=== PATIENT | female | born 1990 | race African-American/Black ===

== ENCOUNTER 2018-03-07 21:15 | Emergency (ER) | payer OTHER ==
[~2018-03-07] VITALS: Ht 160 cm; Wt 83.0 kg
[2018-03-07 21:24] VITALS: BP 118/73
--- NOTE | 2018-03-07 21:35 | Emergency Room Report ---
History of Present Illness General Chief Complaint: Upper Extremity Injury Source: Patient Present Illness HPI Patient is a 27-year-old female who presented after increased right upper extremity pain. Patient had recently the reportedly fallen down some stairs. Patient reports having fallen approximately 24 hours prior to arrival. Patient states she's having increased pain to the right wrist. She denies other locations of pain. She reports taking some ibuprofen with some improvement in the pain. She reports increased pain with movements. 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 Allergies: Coded Allergies: No Known Allergies (Unverified , 03/07/18) Patient History Past Medical History: see triage record Last Menstrual Period: 02/2018 Reviewed Nursing Documentation: PMH: Agreed; PSxH: Agreed Nursing Documentation-PMH Past Medical History: No Stated History Review of Systems All Other Systems: negative except mentioned in HPI Physical Exam Vital Signs Date Time Temp Pulse Resp B/P (MAP) Pulse Ox O2 Delivery O2 Flow Rate FiO2 03/07/18 21:18 98.2 85 16 118/73 98 98.2 General Appearance: well appearing, no apparent distress, alert, GCS 15 Head: normocephalic, atraumatic ENT: hearing grossly normal, normal voice Neck: full range of motion, supple Respiratory: no respiratory distress, speaking full sentences Cardiovascular #1: normal inspection Musculoskeletal: decreased range of mation, other - slight swelling to wrist Neurologic: alert, oriented x3, responsive, senior business analyst III-XII nml as tested, normal gait Psychiatric: mood/affect normal Skin: no rash Medical Decision Making Diagnostic Impression: Primary Impression: Right wrist sprain ER Course Patient presented for wrist pain. Differential diagnosis included fracture, dislocation, scapphoid fracture, sprain, ganglion cyst, septic joint , arthritis, abscess among others. Wrist Xray was ordered. X-ray of the right wrist 3 views read by radiology showed normal bony alignment without fracture. Patient was placed in a splint. She is advised to follow-up with her primary care physician for reexamination and treatment. Last Vital Signs Date Time Temp Pulse Resp B/P (MAP) Pulse Ox O2 Delivery O2 Flow Rate FiO2 03/07/18 21:24 98.2 85 16 118/73 98 98.2 Status: improved Disposition: HOME, SELF-CARE Condition: Stable Scripts Ibuprofen* (MOTRIN*) 600 Mg Tablet 600 MG ORAL Q8H PRN for For Pain, #30 TAB 0 Refills Prov: Sina Gonzalez MD 03/07/18 Sina Gonzalez MD Mar 07, 2018 21:35
[2018-03-07] MEDS ORDERED: IBUPROFEN600 MG ORAL (22:39)
[2018-03-07 22:44] VITALS: BP 121/68
--- NOTE | 2018-03-08 10:04 | Diagnostic Imaging Report ---
Clinical Indication:Wrist pain Technique: 3 views of the right wrist Comparison: None Findings: Bony alignment is normal. No acute fractures. No dislocations. The joint spaces are preserved. There is possibly a tiny cyst within the lunate Impression: Negative This agrees with the preliminary interpretation provided overnight by [facility].
== END 2018-03-07 22:49 | disposition home or self-care (01) ==
LOC: EMR 21:43
DX: S63.501A Unspecified sprain of right wrist, initial encounter (principal); M25.531 Pain in right wrist; W10.9XXA Fall (on) (from) unspecified stairs and steps, initial encounter; Y93.9 Activity, unspecified; Y92.9 Unspecified place or not applicable; Y99.9 Unspecified external cause status
CPT/HCPCS: 29125; 99283

== ENCOUNTER 2018-03-14 19:33 | Emergency (ER) | payer OTHER ==
[~2018-03-14] VITALS: Ht 160 cm; Wt 83.0 kg
[~2018-03-14 19:33] MED LIST: IBUPROFEN600 MG ORAL
--- NOTE | 2018-03-14 20:51 | Emergency Room Report ---
History of Present Illness General Chief Complaint: Vaginal Source: Patient Present Illness HPI 27-year-old female presents emergency department complaining of multiple white vaginal discharge with itching 2 days. Patient denies bleeding, , external genital lesions, rashes, swollen tender lymph nodes or recent unprotected intercourse. Denies dysuria hematuria or urinary frequency. Denies abdominal pain or tenderness. Denies low back pain. Pt. denies suspicion for venereal disease. Allergies: Coded Allergies: No Known Allergies (Unverified , 03/07/18) Patient History Past Medical History: see triage record Past Surgical History: none Pertinent Family History: none Last Menstrual Period: 02/21/18 Now: No Reviewed Nursing Documentation: PMH: Agreed; PSxH: Agreed Nursing Documentation-PMH Past Medical History: No Stated History Review of Systems All Other Systems: negative except mentioned in HPI Physical Exam Vital Signs Date Time Temp Pulse Resp B/P (MAP) Pulse Ox O2 Delivery O2 Flow Rate FiO2 03/14/18 19:40 98.1 100 20 118/67 98 Room Air 98.1 Sp02 EP Interpretation: reviewed, normal General Appearance: no apparent distress, alert, GCS 15, non-toxic Head: normocephalic, atraumatic Eyes: bilateral eye normal inspection, bilateral eye PERRL ENT: hearing grossly normal, normal voice Neck: full range of motion Respiratory: chest non-tender, lungs clear, normal breath sounds, speaking full sentences Cardiovascular #1: regular rate, rhythm Gastrointestinal: normal bowel sounds, non tender, soft Rectal: deferred Genitourinary: normal inspection, no CVA tenderness, cervix normal, other - negative CMT. milky white vaginal d/c Musculoskeletal: back normal, gait/station normal, normal range of motion, non- tender Neurologic: alert, oriented x3, responsive, motor strength/tone normal, sensory intact, speech normal, grossly normal Psychiatric: judgement/insight normal Skin: normal color, no rash, warm/dry, well hydrated Lymphatic: no adenopathy Medical Decision Making PA Attestation Dr. Granados is my supervising physician whom pt. management has been discussed with. Diagnostic Impression: Primary Impression: Bacterial vaginosis ER Course 27-year-old female presents emergency department complaining of multiple white vaginal discharge with itching 2 days. Patient denies bleeding, , external genital lesions, rashes, swollen tender lymph nodes or recent unprotected intercourse. Denies dysuria hematuria or urinary frequency. Denies abdominal pain or tenderness. Denies low back pain. Pt. denies suspicion for venereal disease. Ddx considered but are not limited to UTi , Pyelo, STI, Stone, Cystitis, vaginal laceration, vaginitis. Vital signs: are WNL, pt. is afebrile H& PE are most consistent with: Vaginitis ORDERS: - UA labs are attached negative for UTI - Wet Mount : few clue cells, some WBC's no trich , no yeast ED INTERVENTIONS: -d/w pt. results of labs. DISCHARGE: At this time pt. is stable for d/c to home. Will provide printed patient care instructions, and any necessary prescriptions. Care plan and follow up instructions have been discussed with the patient prior to discharge. discussed with the patient prior to discharge. Labs Test 03/14/18 21:00 Urine Color Pale yellow Urine Appearance Clear Urine pH 6 (4.5-8.0) Urine Specific [place] 1.010 (1.005-1.035) Urine Protein Negative (NEGATIVE) Urine Glucose (UA) Negative (NEGATIVE) Urine Ketones Negative (NEGATIVE) Urine Blood Negative (NEGATIVE) Urine Nitrite Negative (NEGATIVE) Urine Bilirubin Negative (NEGATIVE) Urine Urobilinogen Normal MG/DL (0.0-1.0) Urine Leukocyte Esterase 2+ (NEGATIVE) Urine RBC 0-2 /HPF (0 - 2) Urine WBC 2-4 /HPF (0 - 2) Urine Squamous Epithelial Cells Few /LPF (NONE/OCC) Urine Bacteria Few /HPF (NONE) Last Vital Signs Date Time Temp Pulse Resp B/P (MAP) Pulse Ox O2 Delivery O2 Flow Rate FiO2 03/14/18 19:40 98.1 100 20 118/67 98 Room Air 98.1 Disposition: HOME, SELF-CARE Condition: Stable Scripts Metronidazole* (FLAGYL*) 500 Mg Tablet 500 MG ORAL BID for 7 Days, #14 TAB 0 Refills Prov: Mago Sauer 03/14/18 Patient Instructions: Bacterial Vaginosis, [id number] Additional Instructions: Take medications as directed. ! Do not drink alcohol while taking Flagyl/Metronidazole as this will cause a skin reaction. Follow up with a Primary Care Provider in 3-5 days, even if your symptoms have resolved. --Please review list of primary care clinics, if you do not already have a primary care provider Return sooner to ED if new symptoms occur, or current symptoms become worse. - Please note that this Emergency Department Report was dictated using Vsnap[employer] operations processor technology software, occasionally this can lead to erroneous entry secondary to interpretation by the dictation equipment. Mago Sauer Mar 14, 2018 20:51
[2018-03-14 21:00] VITALS: BP 118/67
[2018-03-14] MEDS ORDERED: METRONIDAZOLE500 MG ORAL (21:05)
[2018-03-14 21:11] VITALS: BP 118/67
[2018-03-14 21:19] LABS: APPEARANCE,URINE CLEAR; BILIRUBIN, URINE NEGATIVE (NEGATIVE); COLOR,URINE PALE YELLOW; GLUCOSE, URINE (UA) NEGATIVE (NEGATIVE); KETONES,URINE NEGATIVE (NEGATIVE); LEUKOCYTE ESTERASE ,URINE 2+ (NEGATIVE); NITRITE,URINE NEGATIVE (NEGATIVE); PH,URINE 6 (4.5-8.0); PROTEIN,URINE NEGATIVE (NEGATIVE); UROBILINOGEN,URINE NORMAL MG/DL (0.0-1.0)
== END 2018-03-14 21:15 | disposition home or self-care (01) ==
LOC: EMR 20:52
DX: N76.0 Acute vaginitis (principal); B96.89 Other specified bacterial agents as the cause of diseases classified elsewhere
CPT/HCPCS: 81003; 87210; 99283

== ENCOUNTER 2018-05-30 17:17 | Emergency (ER) | payer OTHER ==
[~2018-05-30] VITALS: Ht 160 cm; Wt 82.1 kg
[~2018-05-30 17:17] MED LIST changes: +METRONIDAZOLE500 MG ORAL
[2018-05-30 17:21] VITALS: BP 101/68
[2018-05-30] MEDS ORDERED: NKM (17:25)
[2018-05-30] MEDS ORDERED: Fluconazole 100mg tab ORAL ONE (18:00)
[2018-05-30] MEDS ORDERED: Azithromycin 250mg tab ORAL ONE (18:00)
[2018-05-30] MEDS ORDERED: Lidocaine 1% MPF 10mg/ml 5ml INJ ONE (18:00)
--- NOTE | 2018-05-30 18:01 | Emergency Room Report ---
History of Present Illness General Chief Complaint: Vaginal Source: Patient Present Illness HPI 28-year-old female patient presents the ER complaining of suprapubic discomfort and vaginal discharge for the past 3 days. Patient reports white discharge, states it is itchy. Denies foul-smelling odor. Denies dysuria or hematuria. Denies fever, chest pain, shortness of breath, abdominal pain, flank pain, diarrhea, vomiting. Reports concern for STI, states one sexual partner. States would like to be treated for possible STI. Denies concern for , states is not taking control medication. Denies rashes or lesions. Allergies: Coded Allergies: No Known Allergies (Unverified , 03/07/18) Patient History Past Medical History: see triage record Last Menstrual Period: 05/19/2018 Reviewed Nursing Documentation: PMH: Agreed; PSxH: Agreed Nursing Documentation-PMH Past Medical History: No Stated History Review of Systems All Other Systems: negative except mentioned in HPI Physical Exam Vital Signs Date Time Temp Pulse Resp B/P (MAP) Pulse Ox O2 Delivery O2 Flow Rate FiO2 05/30/18 17:21 98.4 93 14 101/68 96 Room Air Sp02 EP Interpretation: reviewed, normal General Appearance: well appearing, no apparent distress, alert, GCS 15, non- toxic Head: normocephalic, atraumatic Eyes: bilateral eye normal inspection, bilateral eye PERRL ENT: hearing grossly normal, normal pharynx, no angioedema, normal voice, uvula midline, moist mucus membranes Neck: full range of motion Respiratory: lungs clear, normal breath sounds, no rhonchi, no respiratory distress, no accessory muscle use, no wheezing, speaking full sentences Cardiovascular #1: regular rate, rhythm, no edema Gastrointestinal: non tender, soft, no mass, non-distended, no guarding, no rebound Genitourinary: no CVA tenderness, deferred Musculoskeletal: back normal, digits/nails normal, gait/station normal, normal range of motion, non-tender Neurologic: alert, oriented x3, responsive, motor strength/tone normal, sensory intact Psychiatric: mood/affect normal Medical Decision Making PA Attestation Dr. Ortiz is my supervising Physician whom patient management has been discussed with. Diagnostic Impression: Primary Impression: Yeast infection Additional Impressions: Urinary tract infection Encounter for assessment of sexually transmitted disease exposure ER Course Pt presents to ED c/o urinary symptoms. DDX considered but are not limited to cystitis, pyelonephritis, STI, vaginitis, , gonorrhea/chlamydia, bacterial vaginosis, yeast infection, PID. No abdominal tenderness to palpation, negative nut blanker operator, negative Aguiar, negative Rovsing, low suspicion for cholecystitis or appendicitis, does not require imaging or labs at this time. VITAL SIGNS are WNL, patient is afebrile. Ordered UA. ER COURSE Clinical exam consistent with yeast infection, will provide patient with fluconazole in the ER. UA results show 5-10 WBCs with moderate bacteria, few epithelial cells indicate likely UTI, will treat with antibiotics. Urine negative Discussed results with patient. Provided patient with Rocephin and Azithromycin in the ER. Informed patient medications will cover for gonorrhea and chlamydia, needs further follow-up evaluation and possible treatment of other sexual transmitted infections. Advised to use safe sex practices including but not limited to use of condoms. Avoid sexual activity for the next 2 weeks. Instructed patient to follow up with STI clinic and/or PCP for STI evaluation and further treatment as necessary. Instructed patient to inform partners of needs for evaluation and treatment of possible infections. Patient is resting comfortably in chair, nontoxic appearing, in no acute distress. Patient states they feel better and is ready to go home. DISCHARGE Patient is stable for discharge. Patient resting comfortably, in no acute distress, nontoxic appearing, talking without difficulty. Will provide with patient care instructions and any necessary prescriptions. Patient understands and agrees to treatment plan. Patient encouraged to drink plenty of fluids. Patient to take medication as instructed. Care plan and follow-up instructions provided. Patient questions asked and answered. Reports understanding and agreement to treatment plan. Patient instructed to follow-up with primary care provider in 3 - 5 days. ER precautions given. Patient instructed to return to ER immediately for any new or worsening of symptoms. Including but not limited to fever, abdominal pain , intractable vomiting. - Please note that this Emergency Department Report was dictated using SensiGenlead systems developer technology software, occasionally this can lead to erroneous entry secondary to interpretation by the dictation equipment. Labs Test 05/30/18 17:30 Urine Color Pale yellow Urine Appearance Clear Urine pH 7 (4.5-8.0) Urine Specific [place] 1.010 (1.005-1.035) Urine Protein Negative (NEGATIVE) Urine Glucose (UA) Negative (NEGATIVE) Urine Ketones Negative (NEGATIVE) Urine Blood Negative (NEGATIVE) Urine Nitrite Negative (NEGATIVE) Urine Bilirubin Negative (NEGATIVE) Urine Urobilinogen Normal MG/DL (0.0-1.0) Urine Leukocyte Esterase 3+ (NEGATIVE) Urine RBC 0 /HPF (0 - 2) Urine WBC 5-10 /HPF (0 - 2) Urine Squamous Epithelial Cells Few /LPF (NONE/OCC) Urine Bacteria Moderate /HPF (NONE) Urine HCG, Qualitative Negative (NEGATIVE) Last Vital Signs Date Time Temp Pulse Resp B/P (MAP) Pulse Ox O2 Delivery O2 Flow Rate FiO2 05/30/18 17:21 98.4 92 14 101/68 96 Room Air Disposition: HOME, SELF-CARE Condition: Stable Scripts Cephalexin* (KEFLEX*) 500 Mg Capsule 500 MG ORAL EVERY 12 HOURS, #14 CAP 0 Refills Prov: Jerrod Crystal 05/30/18 Patient Instructions: Sexually Transmitted Disease, [id number], Urinary Tract Infection, [id number], Vaginal Yeast Infection, Adult Additional Instructions: Followup with primary care provider and followup with STI clinic for further evaluation and treatment. Alert sexual partners for need for evaluation and treatment. Wear condoms during sex. Avoid sexual activity for 2 weeks. Drink plenty of fluids. Patient questions asked and answered. ER precautions given, patient instructed to return to ER immediately for any new or worsening of symptoms. Jerrod Crystal May 30, 2018 18:01
[2018-05-30 18:08] LABS: APPEARANCE,URINE CLEAR; BILIRUBIN, URINE NEGATIVE (NEGATIVE); COLOR,URINE PALE YELLOW; GLUCOSE, URINE (UA) NEGATIVE (NEGATIVE); KETONES,URINE NEGATIVE (NEGATIVE); LEUKOCYTE ESTERASE ,URINE 3+ (NEGATIVE); NITRITE,URINE NEGATIVE (NEGATIVE); PH,URINE 7 (4.5-8.0); PROTEIN,URINE NEGATIVE (NEGATIVE); UROBILINOGEN,URINE NORMAL MG/DL (0.0-1.0)
[2018-05-30] MEDS ORDERED: CEPHALEXIN500 MG ORAL (18:23)
[2018-05-30 18:27] VITALS: BP 101/68
== END 2018-05-30 18:29 | disposition home or self-care (01) ==
LOC: EMR 18:02
DX: B37.9 Candidiasis, unspecified (principal); N39.0 Urinary tract infection, site not specified; Z20.2 Contact with and (suspected) exposure to infections with a predominantly sexual mode of transmission
CPT/HCPCS: 81003; 81025; 87086; 96372; 96374; 99284; J0696; Q0144

== ENCOUNTER 2018-07-08 23:54 | Emergency (ER) | payer OTHER ==
[~2018-07-08] VITALS: Ht 160 cm; Wt 85.3 kg
[~2018-07-08 23:54] MED LIST changes: +CEPHALEXIN500 MG ORAL; +NKM
[2018-07-09 00:20] VITALS: BP 109/74
--- NOTE | 2018-07-09 00:20 | NUR ---
ED Nurse Note: Pt c/o UTI syndrome since 4 days ago, and some discharge from vagina. pt denies any pain during urination. pt admits to frequent urination. pt denies . urine speciment/ color is within normal limits (yellow).
--- NOTE | 2018-07-09 00:35 | Emergency Room Report ---
History of Present Illness General Chief Complaint: Female Urogenital Problems Source: Patient Present Illness [facility] This is a 27-year-old female with no past mental history. She presents with chief complaint of dysuria and frequency. Also with vaginal discharge. Onset for last 4 days. No nausea no vomiting but no back pain. She is sexually active with 2 partners. No protection. No history of STDs. Allergies: Coded Allergies: No Known Allergies (Unverified , 03/07/18) Patient History Past Medical History: see triage record, old chart reviewed Past Surgical History: none Pertinent Family History: none Social History: Denies: smoking Last Menstrual Period: Jun 16 2018 Now: No Immunizations: other Reviewed Nursing Documentation: PMH: Agreed; PSxH: Agreed Nursing Documentation-PMH Past Medical History: No Stated History Review of Systems Eye: Denies: eye pain, blurred vision ENT: Denies: ear pain, nose congestion, throat swelling Respiratory: Denies: cough, shortness of breath Cardiovascular: Denies: chest pain, palpitations Gastrointestinal: Denies: abdominal pain, diarrhea, nausea, vomiting Genitourinary: Reports: discharge, dysuria, frequency Musculoskeletal: Denies: back pain, joint pain Skin: Denies: rash Neurological: Denies: headache, numbness Endocrine: Denies: increased thirst, increased urine Hematologic/Lymphatic: Denies: easy bruising All Other Systems: negative except mentioned in HPI Physical Exam Vital Signs Date Time Temp Pulse Resp B/P (MAP) Pulse Ox O2 Delivery O2 Flow Rate FiO2 07/09/18 00:17 98.2 93 20 109/74 98 Room Air vitals normal Sp02 EP Interpretation: reviewed, normal General Appearance: well appearing, no apparent distress, alert Head: normocephalic, atraumatic Eyes: bilateral eye PERRL, bilateral eye EOMI ENT: hearing grossly normal, normal pharynx Neck: full range of motion, supple, no meningismus Respiratory: chest non-tender, lungs clear, normal breath sounds Cardiovascular #1: regular rate, rhythm, no murmur Gastrointestinal: normal bowel sounds, non tender, no mass, no organomegaly, no bruit, non-distended Genitourinary: other - Exam done with female nurse as clinical care coordinator. External exam normal. Internal exam show yellowish/whitish discharge. No cervical motion tenderness. No adnexal tenderness. Musculoskeletal: back normal, gait/station normal, normal range of motion Psychiatric: mood/affect normal Skin: warm/dry Medical Decision Making Diagnostic Impression: Primary Impression: Candidal vaginitis ER Course Patient presents with discharge consistent with a yeast infection. No evidence of cervicitis or torsion. No evidence of tubo-ovarian abscess. We'll discharge home. Last Vital Signs Date Time Temp Pulse Resp B/P (MAP) Pulse Ox O2 Delivery O2 Flow Rate FiO2 07/09/18 00:20 98.2 69 20 109/74 98 Room Air Status: improved Disposition: HOME, SELF-CARE Condition: Stable Scripts Fluconazole (FLUCONAZOLE) 100 Mg Tablet 100 MG ORAL DAILY, #7 TAB 0 Refills Prov: Robbin Chanel MD 07/09/18 Patient Instructions: Vaginal Yeast Infection, Adult Additional Instructions: Follow-up with your doctor in 7 days. Return if symptom worsen. Robbin Chanel MD Jul 09, 2018 00:35
[2018-07-09 00:57] LABS: APPEARANCE,URINE CLEAR; BILIRUBIN, URINE NEGATIVE (NEGATIVE); COLOR,URINE PALE YELLOW; GLUCOSE, URINE (UA) NEGATIVE (NEGATIVE); KETONES,URINE NEGATIVE (NEGATIVE); LEUKOCYTE ESTERASE ,URINE 1+ (NEGATIVE); NITRITE,URINE NEGATIVE (NEGATIVE); PH,URINE 6 (4.5-8.0); PROTEIN,URINE NEGATIVE (NEGATIVE); UROBILINOGEN,URINE NORMAL MG/DL (0.0-1.0)
[2018-07-09] MEDS ORDERED: FLUCONAZOLE100 MG ORAL (01:19)
[2018-07-09 01:21] VITALS: BP 111/75
[2018-07-09 01:22] VITALS: BP 111/75
--- NOTE | 2018-07-09 01:23 | NUR ---
ED Nurse Note: Pt is DC per ERMD order. pt is alert and oriented times 4. pt vital signs, status and condition are within normal limits. pt has left with all belongings including DC notes and prescription. pt is able to understand DC notes and prescriptions. pt is instructed to follow up with primary provider as soon as possible. pt is stable for discharge. pt is instructed to return as soon as possible to ER if any reoccurance of symptoms. all pt status, vital signs, and condition is reported to ERMD prior to DC. pt is able to ambulate with steady gait. PT ID is DC.
== END 2018-07-09 01:27 | disposition home or self-care (01) ==
LOC: EMR 07-09 00:33
DX: B37.3 Candidiasis of vulva and vagina (principal)
CPT/HCPCS: 81003; 81025; 87210; 99283

== ENCOUNTER 2018-08-08 14:58 | Emergency (ER) | payer OTHER ==
[~2018-08-08] VITALS: Ht 160 cm; Wt 85.3 kg
[~2018-08-08 14:58] MED LIST changes: +FLUCONAZOLE100 MG ORAL
--- NOTE | 2018-08-08 15:03 | NUR ---
ED Nurse Note: walked in to ED due to vaginal discharge with fish smell, pt also c/o itchness for 1 week. Pt is A + O x4. AMbulatory.
[2018-08-08] MEDS ORDERED: NKM (15:05)
[2018-08-08] MEDS ORDERED: Fluconazole 100mg tab ORAL ONE (16:00)
[2018-08-08] MEDS ORDERED: FLUCONAZOLE100 MG ORAL (16:07)
[2018-08-08] MEDS ORDERED: METRONIDAZOLE500 MG ORAL (16:07)
--- NOTE | 2018-08-08 16:07 | Emergency Room Report ---
History of Present Illness General Chief Complaint: Female Urogenital Problems Source: Patient Present Illness HPI *`* Allergies: Coded Allergies: No Known Allergies (Unverified , 03/07/18) Patient History Past Medical History: see triage record Past Surgical History: none Last Menstrual Period: 07/26/18 Reviewed Nursing Documentation: PMH: Agreed; PSxH: Agreed Nursing Documentation-PMH Past Medical History: No Stated History Review of Systems All Other Systems: negative except mentioned in HPI Physical Exam Vital Signs Date Time Temp Pulse Resp B/P (MAP) Pulse Ox O2 Delivery O2 Flow Rate FiO2 08/08/18 15:03 98.1 86 18 126/75 98 Room Air Medical Decision Making Diagnostic Impression: Primary Impression: Vaginitis Qualified Codes: N76.0 - Acute vaginitis ER Course Pt. presents to the ED c/o vaginal irritation/ discomfort, [ ] x [ ] day(s). Ddx considered but are not limited to UTi , Pyelo, STI, Stone, Cystitis, vaginal laceration, vaginitis. Vital signs: are WNL, pt. is afebrile H& PE are most consistent with: Vaginitis ORDERS: - UA labs are attached - Wet Mount : ED INTERVENTIONS: -Diflucan PO DISCHARGE: At this time pt. is stable for d/c to home. Will provide printed patient care instructions, and any necessary prescriptions. Care plan and follow up instructions have been discussed with the patient prior to discharge. discussed with the patient prior to discharge. Last Vital Signs Date Time Temp Pulse Resp B/P (MAP) Pulse Ox O2 Delivery O2 Flow Rate FiO2 08/08/18 15:03 98.1 86 18 126/75 98 Room Air Status: improved Disposition: HOME, SELF-CARE Condition: Unknown Patient Instructions: Vaginitis Additional Instructions: Take medications as directed. Follow up with a Primary Care Provider in 3-5 days, even if your symptoms have resolved. --Please review list of primary care clinics, if you do not already have a primary care provider Return sooner to ED if new symptoms occur, or current symptoms become worse. - Please note that this Emergency Department Report was dictated using Audionamixreflow operator technology software, occasionally this can lead to erroneous entry secondary to interpretation by the dictation equipment. Mago Sauer Aug 08, 2018 16:07
[2018-08-08 16:11] LABS: APPEARANCE,URINE CLEAR; BILIRUBIN, URINE NEGATIVE (NEGATIVE); COLOR,URINE PALE YELLOW; GLUCOSE, URINE (UA) NEGATIVE (NEGATIVE); KETONES,URINE NEGATIVE (NEGATIVE); LEUKOCYTE ESTERASE ,URINE 3+ (NEGATIVE); NITRITE,URINE NEGATIVE (NEGATIVE); PH,URINE 6.5 (4.5-8.0); PROTEIN,URINE NEGATIVE (NEGATIVE); UROBILINOGEN,URINE NORMAL MG/DL (0.0-1.0)
[2018-08-08 16:23] VITALS: BP 120/77
--- NOTE | 2018-08-08 16:23 | NUR ---
ER DISCHARGE NOTE: Patient is cleared to be discharged per ERMD, pt is aox4, on room air, with stable vital signs. pt was given dc and prescription instructions, pt was able to verbalize understanding, pt id band removed without complications. pt is able to ambulate with steady gait. pt took all belongings.
== END 2018-08-08 16:25 | disposition home or self-care (01) ==
LOC: EMR 15:35
DX: N76.0 Acute vaginitis (principal)
CPT/HCPCS: 81003; 99283

== ENCOUNTER 2018-09-14 22:39 | Emergency (ER) | payer OTHER ==
[~2018-09-14] VITALS: Ht 160 cm; Wt 89.4 kg
[2018-09-14 23:00] VITALS: BP 104/72
--- NOTE | 2018-09-14 23:00 | NUR ---
ER Nurse Note: Pt came from home c/o white vaginal discharge since 09/13. Pt stated this has happened before; denies pain. No difficutly voiding, no burning, n/v; pt denies hx of STD. ERMD at pt side; will continue to montior.
--- NOTE | 2018-09-14 23:11 | Emergency Room Report ---
History of Present Illness General Chief Complaint: Vaginal Source: Patient Present Illness HPI Is a 27-year-old female with no past medical history. She does get frequent vaginitis, usually after her menstrual. She presents with vaginal discharge. Whitish in nature. She is sexually active with one partner and uses protection all the time. No douching. No fever chills but no nausea no vomiting. No history of STD. No urinary complaint. No dysuria or frequency or urgency. Allergies: Coded Allergies: No Known Allergies (Unverified , 09/14/18) Patient History Past Medical History: see triage record, old chart reviewed Past Surgical History: none Pertinent Family History: none Social History: Denies: smoking Last Menstrual Period: 09-05-2018 Now: No Immunizations: other Reviewed Nursing Documentation: PMH: Agreed; PSxH: Agreed Nursing Documentation-PMH Past Medical History: No Stated History Review of Systems Eye: Denies: eye pain, blurred vision ENT: Denies: ear pain, nose congestion, throat swelling Respiratory: Denies: cough, shortness of breath Cardiovascular: Denies: chest pain, palpitations Gastrointestinal: Denies: abdominal pain, diarrhea, nausea, vomiting Genitourinary: Reports: vag bleed/dc Musculoskeletal: Denies: back pain, joint pain Skin: Denies: rash Neurological: Denies: headache, numbness Endocrine: Denies: increased thirst, increased urine Hematologic/Lymphatic: Denies: easy bruising All Other Systems: negative except mentioned in HPI Physical Exam Vital Signs Date Time Temp Pulse Resp B/P (MAP) Pulse Ox O2 Delivery O2 Flow Rate FiO2 09/14/18 22:46 98.2 90 16 104/72 98 Room Air vitals normal Sp02 EP Interpretation: reviewed, normal General Appearance: well appearing, no apparent distress, alert Head: normocephalic, atraumatic Eyes: bilateral eye PERRL, bilateral eye EOMI ENT: hearing grossly normal, normal pharynx Neck: full range of motion, supple, no meningismus Respiratory: chest non-tender, lungs clear, normal breath sounds Cardiovascular #1: regular rate, rhythm, no murmur Gastrointestinal: normal bowel sounds, non tender, no mass, no organomegaly, no bruit, non-distended Genitourinary: other - Exam done with female nurse as toddler guide. external exam normal. internal exam with whitish dc. no CMT Musculoskeletal: back normal, gait/station normal, normal range of motion Psychiatric: mood/affect normal Skin: warm/dry Medical Decision Making Diagnostic Impression: Primary Impression: UTI (urinary tract infection) Qualified Codes: N30.00 - Acute cystitis without hematuria Additional Impression: Bacterial vaginosis ER Course Patient presents with vaginal discharge. It may be physiological. There is some clue cells someone going put her on some antibiotics. Possible urinary tract infection. Notice of ectopic. No evidence of PID. We'll discharge home. Last Vital Signs Date Time Temp Pulse Resp B/P (MAP) Pulse Ox O2 Delivery O2 Flow Rate FiO2 09/14/18 22:46 98.2 90 16 104/72 98 Room Air Status: improved Disposition: HOME, SELF-CARE Condition: Stable Scripts Nitrofurantoin Monohyd/M-Cryst (Nitrofurantoin [place]-Mcr 100 mg) 100 Mg Capsule 100 MG ORAL Q12H, #14 CAP Prov: Robbin Chanel MD 09/15/18 Metronidazole* (FLAGYL*) 500 Mg Tablet 500 MG ORAL BID, #14 TAB Prov: Robbin Chanel MD 09/15/18 Additional Instructions: Follow-up with your doctor in 7 days. Return if symptom worsen. Robbin Chanel MD Sep 14, 2018 23:11
[2018-09-14 23:30] LABS: APPEARANCE,URINE CLEAR; BILIRUBIN, URINE NEGATIVE (NEGATIVE); COLOR,URINE PALE YELLOW; GLUCOSE, URINE (UA) NEGATIVE (NEGATIVE); KETONES,URINE NEGATIVE (NEGATIVE); LEUKOCYTE ESTERASE ,URINE 2+ (NEGATIVE); NITRITE,URINE NEGATIVE (NEGATIVE); PH,URINE 5 (4.5-8.0); PROTEIN,URINE NEGATIVE (NEGATIVE); UROBILINOGEN,URINE NORMAL MG/DL (0.0-1.0)
--- NOTE | 2018-09-14 23:39 | NUR ---
ER Nurse Note: All orders completed per ERMD orders; awaiting results. Pt resting comfortably, no signs of distress. All safety measures met; will continue to montior.
[2018-09-15] MEDS ORDERED: METRONIDAZOLE500 MG ORAL (00:01)
[2018-09-15] MEDS ORDERED: MACROBID100 MG ORAL (00:01)
[2018-09-15 00:15] VITALS: BP 104/72
--- NOTE | 2018-09-15 00:15 | NUR ---
ED Nurse Note: Pt seen, treated, medically cleared for discharge by ERMD. Discharge instructions and prescriptions given with repeat verbalziaion by pt. Instructed pt to follow up with primary care provider within one week. Pt a&ox4, VSS, no signs of distress. ID band removed. Pt left with steady gait via own transporation.
== END 2018-09-15 00:15 | disposition home or self-care (01) ==
LOC: EMR 23:01
DX: N39.0 Urinary tract infection, site not specified (principal); N76.0 Acute vaginitis; B96.89 Other specified bacterial agents as the cause of diseases classified elsewhere
CPT/HCPCS: 81003; 81025; 87086; 87210; 99283

== ENCOUNTER 2019-01-01 13:01 | Emergency (ER) | payer OTHER ==
[~2019-01-01] VITALS: Ht 157.5 cm; Wt 81.6 kg
[~2019-01-01 13:01] MED LIST changes: +MACROBID100 MG ORAL
[2019-01-01] MEDS ORDERED: ALBUTEROL SULF8.5 GM INH (13:08)
[2019-01-01 13:18] VITALS: BP 112/74
--- NOTE | 2019-01-01 13:18 | NUR ---
ED Nurse Note: Pt walked in to ER c/o abdominal pain and N/V for last 2 weeks. Pt aao x4 and ambulatory. skin clean and intact. calm and cooperative. pt denied possibility of due to pt just started period. pt in gown.
[2019-01-01 13:31] LABS: APPEARANCE,URINE CLEAR; BILIRUBIN, URINE NEGATIVE (NEGATIVE); COLOR,URINE PALE YELLOW; GLUCOSE, URINE (UA) NEGATIVE (NEGATIVE); KETONES,URINE NEGATIVE (NEGATIVE); LEUKOCYTE ESTERASE ,URINE 2+ (NEGATIVE); NITRITE,URINE NEGATIVE (NEGATIVE); PH,URINE 8 (4.5-8.0); PROTEIN,URINE NEGATIVE (NEGATIVE); UROBILINOGEN,URINE NORMAL MG/DL (0.0-1.0)
[2019-01-01 13:47] LABS: BASOPHILS % (AUTO) 2.1 % (0.0-2.0); EOSINOPHILS % (AUTO) 6.6 % (0.0-3.0); HEMATOCRIT 41.8 % (37.0-47.0); HEMOGLOBIN 13.7 G/DL (12.0-16.0); LYMPHOCYTES % (AUTO) 28.8 % (20.0-45.0); MEAN CORPUSCULAR VOLUME 87 FL (80-99); MONOCYTES % (AUTO) 10.3 % (1.0-10.0); NEUTROPHILS % (AUTO) 52.2 % (45.0-75.0); PLATELET COUNT 371 K/UL (150-450); RED BLOOD COUNT 4.79 M/UL (4.20-5.40); RED CELL DISTRIBUTION WIDTH 12.4 % (11.6-14.8); WHITE BLOOD COUNT 5.3 K/UL (4.8-10.8)
[2019-01-01 14:02] LABS: ANION GAP 8 mmol/L (5-15); BLOOD UREA NITROGEN 9 mg/dL (7-18); CALCIUM 9.4 MG/DL (8.5-10.1); CARBON DIOXIDE 30 MMOL/L (21-32); CHLORIDE 104 MMOL/L (98-107); CREATININE 0.9 MG/DL (0.55-1.30); POTASSIUM 4.1 MMOL/L (3.5-5.1); SODIUM 142 MMOL/L (136-145)
[2019-01-01 14:07] LABS: ALANINE AMINOTRANSFERASE 36 U/L (12-78); ALBUMIN 4.6 G/DL (3.4-5.0); ALBUMIN/GLOBULIN RATIO 1.2 (1.0-2.7); ALKALINE PHOSPHATASE 67 U/L (46-116); ASPARTATE AMINO TRANSFERASE 27 U/L (15-37); BILIRUBIN,TOTAL 0.8 MG/DL (0.2-1.0)
--- NOTE | 2019-01-01 14:37 | Emergency Room Report ---
History of Present Illness General Chief Complaint: Abdominal Pain Source: Patient Present Illness HPI 27-year-old female with no significant past medical history here complaining of 2 weeks of epigastric abdominal pain, multiple bouts of nonbloody vomiting, nausea, and few bouts of nonbloody diarrhea. Patient does not recall whether her symptoms started after eating a special food. Denies recent travel. Denies fever and chills, shortness of breath, chest pain, palpitation, urinary symptoms. 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 Does report that she is a lot of greasy food and acidic and spicy food. Denies smoking, drinking alcohol. Has not been to her primary care provider regarding this issue. Patient is rating her pain 3 out of 10, intermittent, worsening when eating and immediate vomiting. Denies acid reflux. Allergies: Coded Allergies: No Known Allergies (Unverified , 09/14/18) Patient History Past Medical History: see triage record Past Surgical History: unable to obtain Pertinent Family History: none Last Menstrual Period: 12/24/18 Now: No Immunizations: UTD Reviewed Nursing Documentation: PMH: Agreed; PSxH: Agreed Nursing Documentation-PMH Past Medical History: No History, Except For Hx Asthma: Yes Review of Systems All Other Systems: negative except mentioned in HPI Physical Exam Vital Signs Date Time Temp Pulse Resp B/P (MAP) Pulse Ox O2 Delivery O2 Flow Rate FiO2 01/01/19 13:04 97.9 96 17 112/74 (87) 98 Room Air Sp02 EP Interpretation: reviewed, normal General Appearance: normal inspection, well appearing, no apparent distress, alert, GCS 15, non-toxic Head: normocephalic, atraumatic Eyes: bilateral eye normal inspection, bilateral eye PERRL ENT: normal ENT inspection, hearing grossly normal, normal pharynx, no angioedema Neck: normal inspection, full range of motion, supple Respiratory: normal inspection, chest non-tender, lungs clear, no rhonchi, no retraction Cardiovascular #1: normal inspection, normal peripheral pulses, regular rate, rhythm, no murmur, normal capillary refill Gastrointestinal: normal bowel sounds, non tender, soft, no mass, no organomegaly, no peritonitis, no bruit, non-distended, no guarding, no hernia, no pulsatile mass, no rebound Genitourinary: no CVA tenderness Musculoskeletal: normal inspection, back normal Neurologic: normal inspection, alert, oriented x3, responsive Psychiatric: normal inspection, judgement/insight normal Skin: palpation normal, normal color Lymphatic: normal inspection, no adenopathy Medical Decision Making PA Attestation All my diagnosis and treatment plans were reviewed ad discussed with my supervising physician Dr. Granados Diagnostic Impression: Primary Impression: Gastroenteritis ER Course Follow-up with your primary care provider for stool culture, ova and parasite and to be tested for H. pylori as you have been having intermittent nonbloody diarrhea and nausea vomiting for 2 weeks that can be secondary to bacterial infection increase her oral hydration keep a BRAT diet consisted of banana, rice , applesauce, piece of toast avoid spicy acidic food avoid red meat and dairy products 27-year-old female with no significant past medical history here complaining of 2 weeks of epigastric abdominal pain, multiple bouts of nonbloody vomiting, nausea, and few bouts of nonbloody diarrhea. Patient does not recall whether her symptoms started after eating a special food. Denies recent travel. Denies fever and chills, shortness of breath, chest pain, palpitation, urinary symptoms. 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 Does report that she is a lot of greasy food and acidic and spicy food. Denies smoking, drinking alcohol. Has not been to her primary care provider regarding this issue. Patient is rating her pain 3 out of 10, intermittent, worsening when eating and immediate vomiting. Denies acid reflux. Ddx considered but are not limited to: appendicitis, gastroenteritis, UTI, pyelonephritis, Vital signs: are WNL, pt. is afebrile H&PE are most consistent with: Gastroenteritis ORDERS: cbc, cmp,, UA, urine test, EKG ED INTERVENTIONS: NS bolus, zofran, pepcid DISCHARGE: At this time pt. is stable for d/c to home. Will provide printed patient care instructions, and any necessary prescriptions. Care plan and follow up instructions have been discussed with the patient prior to discharge. Follow-up with a primary care provider for stool culture, ova and person H. pylori testing. Keep BRAT diet Last Vital Signs Date Time Temp Pulse Resp B/P (MAP) Pulse Ox O2 Delivery O2 Flow Rate FiO2 01/01/19 13:18 97.9 96 17 112/74 98 Room Air Disposition: HOME, SELF-CARE Condition: Stable Scripts Ondansetron (Zofran) 4 Mg Tablet 4 MG ORAL Q6H PRN for Nausea & Vomiting, #12 TAB Prov: Elyssa Avalos 01/01/19 Referrals: [facility],REFERRING (PCP) Patient Instructions: Viral Gastroenteritis, Adult Additional Instructions: Follow-up with your primary care provider for stool culture, ova and parasite and to be tested for H. pylori as you have been having intermittent nonbloody diarrhea and nausea vomiting for 2 weeks that can be secondary to bacterial infection increase her oral hydration keep a BRAT diet consisted of banana, rice , applesauce, piece of toast avoid spicy acidic food avoid red meat and dairy products Elyssa Avalos Jan 01, 2019 14:37
[2019-01-01] MEDS ORDERED: ZOFRAN4 M1 ORAL (14:38)
[2019-01-01 14:46] VITALS: BP 128/72
--- NOTE | 2019-01-01 14:48 | NUR ---
ER DISCHARGE NOTE: Patient is cleared to be discharged per ERMD, pt is aox4, on room air, with stable vital signs. pt was given dc and prescription instructions, pt was able to verbalize understanding, pt id band and iv site removed without complications. pt is able to ambulate with steady gait. pt took all belongings.
--- NOTE | 2019-01-02 17:07 | Cardiology Report ---
APPROVED REPORT EKG Measurement Heart [id number] Normal sinus rhythm Normal ECG
== END 2019-01-01 14:49 | disposition home or self-care (01) ==
LOC: EMR 13:12
DX: K52.9 Noninfective gastroenteritis and colitis, unspecified (principal); R11.2 Nausea with vomiting, unspecified
CPT/HCPCS: 36415; 80053; 81001; 81025; 83690; 85025; 93005; 96374; 96375; 99284; J2405; S0028

== ENCOUNTER 2019-02-15 17:08 | Emergency (ER) | payer OTHER ==
[~2019-02-15] VITALS: Ht 160 cm; Wt 81.6 kg
[~2019-02-15 17:08] MED LIST changes: +ALBUTEROL SULF8.5 GM INH; +ZOFRAN4 M1 ORAL
[2019-02-15 17:20] VITALS: BP 119/82
[2019-02-15] MEDS ORDERED: NKM (17:23)
--- NOTE | 2019-02-15 17:44 | NUR ---
ED Nurse Note: Patient presents to ER due to vaginal discharge, white, 'fishy smell' x 2-3 days; Reports no abdominal pain. Reports no N/V or fever or chills. Reports no urinary problem.
--- NOTE | 2019-02-15 17:49 | Emergency Room Report ---
History of Present Illness General Chief Complaint: Vaginal Source: Medical Record Present Illness HPI 27-year-old female with no significant past medical history here complaining of 2 days of white vaginal discharge with fishy odor. Patient also complains of urinary frequency however denies dysuria, hematuria, pelvic pain, nausea vomiting, fever and chills. Patient has not taken medication for symptom relief. Patient is sexually active does not use condoms. Last menstrual period was 2 weeks ago and regular. Patient agrees to be prophylactically treated for both chlamydia, gonorrhea as well as bacterial vaginosis, trichomoniasis, yeast infection. Denies chest pain, shortness of breath, palpitation, or other associated symptoms. Allergies: Coded Allergies: No Known Allergies (Unverified , 09/14/18) Patient History Past Medical History: see triage record Past Surgical History: unable to obtain Pertinent Family History: none Last Menstrual Period: 01/22/19 Now: No Immunizations: UTD Reviewed Nursing Documentation: PMH: Agreed; PSxH: Agreed Nursing Documentation-PMH Past Medical History: No History, Except For Hx Asthma: Yes Review of Systems All Other Systems: negative except mentioned in HPI Physical Exam Vital Signs Date Time Temp Pulse Resp B/P (MAP) Pulse Ox O2 Delivery O2 Flow Rate FiO2 02/15/19 17:20 98.4 18 119/82 99 Room Air 02/15/19 17:20 91 Sp02 EP Interpretation: reviewed, normal General Appearance: no apparent distress, alert, GCS 15, non-toxic Head: normocephalic, atraumatic Eyes: bilateral eye normal inspection, bilateral eye PERRL ENT: hearing grossly normal, normal pharynx, no angioedema, normal voice Neck: full range of motion, supple/symm/no masses Respiratory: chest non-tender, lungs clear, normal breath sounds, speaking full sentences Cardiovascular #1: regular rate, rhythm, no edema, no murmur Gastrointestinal: normal bowel sounds, non tender, soft, non-distended, no guarding, no rebound Rectal: deferred Genitourinary: normal inspection, no CVA tenderness Musculoskeletal: back normal, gait/station normal, normal range of motion, non- tender Neurologic: alert, oriented x3, responsive, motor strength/tone normal, sensory intact, speech normal Psychiatric: judgement/insight normal, memory normal, mood/affect normal, no suicidal/homicidal ideation Skin: no rash Lymphatic: no adenopathy Medical Decision Making PA Attestation All diagnoses and treatment plans were reviewed and discussed with my supervising physician Dr. Horton Diagnostic Impression: Primary Impression: Vaginitis Additional Impressions: Screening for STD (sexually transmitted disease) UTI (urinary tract infection) ER Course 27-year-old female with no significant past medical history here complaining of 2 days of white vaginal discharge with fishy odor. Patient also complains of urinary frequency however denies dysuria, hematuria, pelvic pain, nausea vomiting, fever and chills. Patient has not taken medication for symptom relief. Patient is sexually active does not use condoms. Last menstrual period was 2 weeks ago and regular. Patient agrees to be prophylactically treated for both chlamydia, gonorrhea as well as bacterial vaginosis, trichomoniasis, yeast infection. Denies chest pain, shortness of breath, palpitation, or other associated symptoms. Ddx considered but are not limited to: vaginitis, yeast infection, BV, chlamydia , Gohnorrea, syphylis, HIV, herpes 1 or 2 Vital signs: are WNL, pt. is afebrile H&PE are most consistent with : Vaginitis, screening for STD, UTI ORDERS: UA, , GC and chlamydia, urine test, doxycycline, Flagyl, Diflucan ED INTERVENTIONS: Rocephin 250 mg IM DISCHARGE: At this time pt. is stable for d/c to home. Will provide printed patient care instructions, and any necessary prescriptions. Care plan and follow up instructions have been discussed with the patient prior to discharge. Patient agrees to be prophylactically treated for chlamydia and gonorrhea, bacterial vaginosis, yeast infection patient knows that the chlamydia and gonorrhea testing are pending. Agrees to follow-up with her primary care provider take medication as directed Last Vital Signs Date Time Temp Pulse Resp B/P (MAP) Pulse Ox O2 Delivery O2 Flow Rate FiO2 02/15/19 17:20 98.4 91 18 119/82 (94) 99 Room Air Disposition: HOME, SELF-CARE Condition: Stable Scripts Doxycycline Hyclate (DOXYCYCLINE HYCLATE) 100 Mg Capsule 100 MG PO BID for 7 Days, #14 CAP Prov: Elyssa Avalos 02/15/19 Fluconazole (FLUCONAZOLE) 100 Mg Tablet 1.5 TAB ORAL ONCE for 1 Day, #2 TAB 0 Refills Prov: Elyssa Avalos 02/15/19 Metronidazole* (FLAGYL*) 500 Mg Tablet 500 MG ORAL BID for 7 Days, #14 TAB Prov: Elyssa Avalos 02/15/19 Patient Instructions: Urinary Tract Infection, Vaginitis, [id number] Additional Instructions: Take medication as directed follow-up with your primary care provider if worsening symptoms return to the emergency room Elyssa Avalos Feb 15, 2019 17:49
[2019-02-15] MEDS ORDERED: FLUCONAZOLE100 MG ORAL (17:51)
[2019-02-15] MEDS ORDERED: DOXYCYCLINE HY100 M2 PO (17:51)
[2019-02-15] MEDS ORDERED: METRONIDAZOLE500 MG ORAL (17:51)
[2019-02-15] MEDS ORDERED: Lidocaine 1% MPF 10mg/ml 5ml INJ ONE (18:00)
[2019-02-15 18:14] LABS: APPEARANCE,URINE SLIGHTLY CLOUDY; BILIRUBIN, URINE NEGATIVE (NEGATIVE); COLOR,URINE PALE YELLOW; GLUCOSE, URINE (UA) NEGATIVE (NEGATIVE); KETONES,URINE NEGATIVE (NEGATIVE); LEUKOCYTE ESTERASE ,URINE 3+ (NEGATIVE); NITRITE,URINE NEGATIVE (NEGATIVE); PH,URINE 6.5 (4.5-8.0); PROTEIN,URINE NEGATIVE (NEGATIVE); UROBILINOGEN,URINE NORMAL MG/DL (0.0-1.0)
[2019-02-15 18:36] VITALS: BP 119/82
== END 2019-02-15 18:36 | disposition home or self-care (01) ==
LOC: EMR 17:50
DX: N76.0 Acute vaginitis (principal); N39.0 Urinary tract infection, site not specified; J45.909 Unspecified asthma, uncomplicated
CPT/HCPCS: 81001; 81025; 87086; 87491; 87590; 96372; 99283; J0696

== ENCOUNTER 2019-04-23 23:37 | Emergency (ER) | payer OTHER ==
[~2019-04-23] VITALS: Ht 160 cm; Wt 81.6 kg
[~2019-04-23 23:37] MED LIST changes: +DOXYCYCLINE HY100 M2 PO
[2019-04-24] VITALS: BP 118/76
--- NOTE | 2019-04-24 | NUR ---
ED Nurse Note: Patient walked in to ER due vaginal discharge x3 days. As per patient, she has white discharges with foul smelling odor. Stated that she is sexually active. Denies and pain or any vaginal swelling. No stated medical history. No SOB. Afebrile. VSS.
--- NOTE | 2019-04-24 00:04 | Emergency Room Report ---
History of Present Illness General Chief Complaint: Female Urogenital Problems Source: Patient Present Illness HPI Is a 27-year-old female with no past medical history. She presents with chief complaint of vaginal discharge. Onset for the last 2 days. She said has a fishy odor to it. Similar symptom in the past. She is sexually active with no protection. No history of STD. No douching. Denies any other complaint. No urinary complaint. Allergies: Coded Allergies: No Known Allergies (Unverified , 09/14/18) Patient History Past Medical History: see triage record, old chart reviewed Past Surgical History: none Pertinent Family History: none Social History: Denies: smoking Last Menstrual Period: 04/13/19 Now: No Immunizations: other Reviewed Nursing Documentation: PMH: Agreed; PSxH: Agreed Nursing Documentation-PMH Hx Asthma: Yes Review of Systems Eye: Denies: eye pain, blurred vision ENT: Denies: ear pain, nose congestion, throat swelling Respiratory: Denies: cough, shortness of breath Cardiovascular: Denies: chest pain, palpitations Gastrointestinal: Denies: abdominal pain, diarrhea, nausea, vomiting Genitourinary: Reports: vag bleed/dc Musculoskeletal: Denies: back pain, joint pain Skin: Denies: rash Neurological: Denies: headache, numbness Endocrine: Denies: increased thirst, increased urine Hematologic/Lymphatic: Denies: easy bruising All Other Systems: negative except mentioned in HPI Physical Exam Vital Signs Date Time Temp Pulse Resp B/P (MAP) Pulse Ox O2 Delivery O2 Flow Rate FiO2 04/23/19 23:53 99.0 85 18 118/76 (90) 98 Room Air Vitals normal Sp02 EP Interpretation: reviewed, normal General Appearance: well appearing, no apparent distress, alert Head: normocephalic, atraumatic Eyes: bilateral eye PERRL, bilateral eye EOMI ENT: hearing grossly normal, normal pharynx Neck: full range of motion, supple, no meningismus Respiratory: chest non-tender, lungs clear, normal breath sounds Cardiovascular #1: regular rate, rhythm, no murmur Gastrointestinal: normal bowel sounds, non tender, no mass, no organomegaly, no bruit, non-distended Genitourinary: other - Pelvic exam done with female nurse as special police. External exam normal. Internal exam show copious amount of yellowish discharge. No cervical motion tenderness. No adnexal tenderness. Musculoskeletal: back normal, gait/station normal, normal range of motion Psychiatric: mood/affect normal Medical Decision Making Diagnostic Impression: Primary Impression: Acute cervicitis ER Course This patient presents with vaginal discharge. Wet prep not significant for trichomonas, bacterial vaginosis or yeast infection. She appears amount of greenish/yellowish discharge. This is concerning for gonorrheal cervicitis. Rocephin and azithromycin given here. Will recommend outpatient HIV testing, hepatitis, syphilis and other STD testing. Also recommend partner to be treated. Last Vital Signs Date Time Temp Pulse Resp B/P (MAP) Pulse Ox O2 Delivery O2 Flow Rate FiO2 04/24/19 00:00 99.0 80 18 118/76 98 Room Air Status: improved Disposition: HOME, SELF-CARE Condition: Stable Additional Instructions: Have your partner treated also. Recommend outpatient testing for HIV, hepatitis , syphilis and other STDs. Follow-up with your doctor in 7-day. Return if symptoms worsen. Robbin Chanel MD Apr 24, 2019 00:04
--- NOTE | 2019-04-24 00:20 | NUR ---
ED Nurse Note: Vaginal wet mount done at bedside.
[2019-04-24 00:47] LABS: APPEARANCE,URINE CLEAR; BILIRUBIN, URINE NEGATIVE (NEGATIVE); COLOR,URINE PALE YELLOW; GLUCOSE, URINE (UA) NEGATIVE (NEGATIVE); KETONES,URINE NEGATIVE (NEGATIVE); NITRITE,URINE NEGATIVE (NEGATIVE); PH,URINE 6 (4.5-8.0); PROTEIN,URINE NEGATIVE (NEGATIVE); UROBILINOGEN,URINE NORMAL MG/DL (0.0-1.0)
[2019-04-24 00:57] LABS: LEUKOCYTE ESTERASE ,URINE 1+ (NEGATIVE)
[2019-04-24] MEDS ORDERED: Azithromycin 250mg tab ORAL ONE (01:30)
[2019-04-24] MEDS ORDERED: Lidocaine 1% MPF 10mg/ml 5ml INJ ONE (01:30)
[2019-04-24 01:34] VITALS: BP 118/76
--- NOTE | 2019-04-24 01:34 | NUR ---
ED Nurse Note: Pt cleared by ERMD for discharge. DC instructions was given and explained to pt and verbalized understanding of teachings. All medical deviecs such as ID band removed. Pt is AAO x4, ambulatory and left with all personal belongings.
== END 2019-04-24 01:35 | disposition home or self-care (01) ==
LOC: EMR 23:59
DX: N72 Inflammatory disease of cervix uteri (principal); J45.909 Unspecified asthma, uncomplicated
CPT/HCPCS: 81003; 81025; 87210; 96372; 96374; J0696; Q0144; Z7502; 99284

== ENCOUNTER 2019-06-08 23:33 | Emergency (ER) | payer OTHER ==
[~2019-06-08] VITALS: Ht 160 cm; Wt 86.6 kg
[2019-06-08 23:48] VITALS: BP 125/82
--- NOTE | 2019-06-08 23:48 | NUR ---
ED Nurse Note: Patient walked into ED from home d/t c/o vaginal fishy odor and white thick vaginal discharge x 3 days. No c/o pain. Patient aao x 4 and ambulatory. Patient placed in gown and diagnostic cardiac sonographer. No acute distress at this time.
--- NOTE | 2019-06-08 23:53 | NUR ---
ED Nurse Note: ERMD at bedside.
[2019-06-08 23:59] LABS: APPEARANCE,URINE CLEAR; BILIRUBIN, URINE NEGATIVE (NEGATIVE); COLOR,URINE PALE YELLOW; GLUCOSE, URINE (UA) NEGATIVE (NEGATIVE); KETONES,URINE NEGATIVE (NEGATIVE); LEUKOCYTE ESTERASE ,URINE 1+ (NEGATIVE); NITRITE,URINE NEGATIVE (NEGATIVE); PH,URINE 7 (4.5-8.0); PROTEIN,URINE NEGATIVE (NEGATIVE); UROBILINOGEN,URINE NORMAL MG/DL (0.0-1.0)
--- NOTE | 2019-06-09 00:06 | Emergency Room Report ---
History of Present Illness General Chief Complaint: Female Urogenital Problems Source: Patient Present Illness HPI 28-year-old female presents ED for evaluation. Complaining of vaginal discharge x3 days. Describes it as a fishy odor. Denies dysuria. Denies pain. States that she has had recent unprotected sex. Dates that she has had a prior history of BV. No other aggravating relieving factors. Denies any other associated symptoms Allergies: Coded Allergies: No Known Allergies (Unverified , 09/14/18) Patient History Past Medical History: asthma Past Surgical History: none Pertinent Family History: none Social History: Denies: smoking, alcohol use, drug use Last Menstrual Period: 04/08/19 Now: No Immunizations: UTD Reviewed Nursing Documentation: PMH: Agreed; PSxH: Agreed Nursing Documentation-PMH Past Medical History: No History, Except For Hx Asthma: Yes Review of Systems All Other Systems: negative except mentioned in HPI Physical Exam Vital Signs Date Time Temp Pulse Resp B/P (MAP) Pulse Ox O2 Delivery O2 Flow Rate FiO2 06/08/19 23:44 98.4 100 22 121/70 (87) 97 Room Air Sp02 EP Interpretation: reviewed, normal General Appearance: no apparent distress, alert, GCS 15, non-toxic Head: normocephalic, atraumatic Eyes: bilateral eye normal inspection, bilateral eye PERRL ENT: hearing grossly normal, normal pharynx, no angioedema, normal voice Neck: full range of motion, supple/symm/no masses Respiratory: chest non-tender, lungs clear, normal breath sounds, speaking full sentences Cardiovascular #1: regular rate, rhythm, no edema Cardiovascular #2: 2+ carotid (R), 2+ carotid (L), 2+ radial (R), 2+ radial (L) , 2+ dorsalis pedis (R), 2+ dorsalis pedis (L) Gastrointestinal: normal bowel sounds, non tender, soft, non-distended, no guarding, no rebound Rectal: deferred Genitourinary: normal inspection, no CVA tenderness Musculoskeletal: back normal, normal range of motion, gait/station normal, non- tender Neurologic: alert, motor strength/tone normal, oriented x3, sensory intact, responsive, speech normal Psychiatric: judgement/insight normal, memory normal, mood/affect normal, no suicidal/homicidal ideation Reflexes: 3+ bicep (R), 3+ bicep (L), 3+ tricep (R), 3+ tricep (L), 3+ knee (R) , 3+ knee (L) Lymphatic: no adenopathy Medical Decision Making Diagnostic Impression: Primary Impression: Vaginitis Qualified Codes: N76.0 - Acute vaginitis ER Course Hospital Course 28 yo F presents with vaginal discharge Differential diagnoses include: Cervicitis, UTI, yeast infection, STD Clinical course Patient placed on stretcher in ED. After initial history, physical exam reveals a female in no acute distress. I ordered UA, UA unremarkable. Positive Discussed this with the patient. She states that she had a about 1 week ago. Did not divulge this to me initially. Pelvic exam-cook chef present, os is closed, no CMT, no adnexal tenderness. There is white discharge noted. wet mount collected wet mount - clue cells noted I discussed findings with the patient. Patient is requesting treatment for presumed STD. Given Rocephin and azithromycin ED. I discussed that treatment for BV requires Flagyl which is contraindicated in early however patient states she is not at this time and had an . Is requesting the treatment for Flagyl. I recommend close follow-up with MANUFACTURING LABORER regardless Diagnosis - vaginitis Stable and discharged to home with Rx Flagyl. Followup with PMD/MANUFACTURING LABORER. Return to ED if symptoms recur or worsen Labs Test 06/08/19 23:49 Urine Color Pale yellow Urine Appearance Clear Urine pH 7 (4.5-8.0) Urine Specific [place] 1.005 (1.005-1.035) Urine Protein Negative (NEGATIVE) Urine Glucose (UA) Negative (NEGATIVE) Urine Ketones Negative (NEGATIVE) Urine Blood Negative (NEGATIVE) Urine Nitrite Negative (NEGATIVE) Urine Bilirubin Negative (NEGATIVE) Urine Urobilinogen Normal MG/DL (0.0-1.0) Urine Leukocyte Esterase 1+ (NEGATIVE) Urine RBC 0-2 /HPF (0 - 2) Urine WBC 2-4 /HPF (0 - 2) Urine Squamous Epithelial Cells Few /LPF (NONE/OCC) Urine Bacteria Few /HPF (NONE) Urine HCG, Qualitative Positive (NEGATIVE) Last Vital Signs Date Time Temp Pulse Resp B/P (MAP) Pulse Ox O2 Delivery O2 Flow Rate FiO2 06/08/19 23:48 98.4 95 20 125/82 99 Room Air Status: improved Disposition: HOME, SELF-CARE Condition: Stable Scripts Metronidazole* (FLAGYL*) 500 Mg Tablet 500 MG ORAL THREE TIMES A DAY, #21 TAB Prov: Sha Ortiz MD 06/09/19 Sha Ortiz MD Jun 09, 2019 00:06
--- NOTE | 2019-06-09 00:25 | NUR ---
ED Nurse Note: Assisted ERMD with pelvic exam. Wet mount sample collected and sent to lab.
[2019-06-09] MEDS ORDERED: METRONIDAZOLE500 MG ORAL (00:51)
[2019-06-09] MEDS ORDERED: Lidocaine 1% MPF 10mg/ml 5ml INJ ONE (01:00)
[2019-06-09] MEDS ORDERED: Azithromycin 250mg tab ORAL ONE (01:00)
[2019-06-09 01:02] VITALS: BP 124/78
--- NOTE | 2019-06-09 01:02 | NUR ---
ER DISCHARGE NOTE: Patient cleared for discharge per ERMD. Patient given discharge instructions and prescription, verbalized understanding. Patient aao x 4 and ambulatory upon discharge. Medical devices and ID band removed. No acute distress noted upon discharge.
== END 2019-06-09 01:05 | disposition home or self-care (01) ==
LOC: EMR 23:59
DX: N76.0 Acute vaginitis (principal)
CPT/HCPCS: 81003; 81025; 87210; 96372; J0696; Q0144; Z7502; 99283

== ENCOUNTER 2019-09-27 18:13 | Emergency (ER) | payer OTHER ==
[~2019-09-27] VITALS: Ht 172.7 cm; Wt 88.5 kg
--- NOTE | 2019-09-27 18:55 | NUR ---
ED Nurse Note: Patient walked in to ER c/o vaginal Dc and strong odor. Denyed fever. AAO x4, VSS at this time
[2019-09-27 19:00] VITALS: BP 100/72
--- NOTE | 2019-09-27 19:02 | Emergency Room Report ---
History of Present Illness General Chief Complaint: Female Urogenital Problems Present Illness HPI 29-year-old female with no signal past medical history of vaginal discharge and odor. Patient has history of recurrences bacterial vaginosis and yeast infection. Reports that has been sexually active with the same partner. Denies any dysuria at this time. Has regular menses. Resting comfortably stay vital signs. Denies at this time. Allergies: Coded Allergies: No Known Allergies (Unverified , 09/14/18) COVID-19 Screening Contact w/high risk pt: No Recent Travel to affected area: No Experienced COVID-19 symptoms?: No Patient History Past Surgical History: none Pertinent Family History: none Last Menstrual Period: 09/03/2019 Now: No Immunizations: UTD Reviewed Nursing Documentation: PMH: Agreed; PSxH: Agreed Nursing Documentation-PMH Hx Asthma: Yes Review of Systems All Other Systems: negative except mentioned in HPI Physical Exam Vital Signs Date Time Temp Pulse Resp B/P (MAP) Pulse Ox O2 Delivery O2 Flow Rate FiO2 09/27/19 18:47 99.3 93 20 100/72 (81) 99 Room Air Sp02 EP Interpretation: reviewed, normal General Appearance: no apparent distress, alert, GCS 15, non-toxic Head: normocephalic, atraumatic Eyes: bilateral eye normal inspection, bilateral eye PERRL ENT: hearing grossly normal, normal pharynx, no angioedema, normal voice Neck: full range of motion, supple/symm/no masses Respiratory: chest non-tender, lungs clear, normal breath sounds, no rhonchi, speaking full sentences Cardiovascular #1: regular rate, rhythm, no edema, no gallop, no murmur Gastrointestinal: non tender, soft Rectal: deferred Genitourinary: no CVA tenderness Musculoskeletal: back normal Neurologic: alert, oriented Psychiatric: judgement/insight normal, memory normal, mood/affect normal, no suicidal/homicidal ideation Skin: no rash Lymphatic: no adenopathy Medical Decision Making PA Attestation All diagnoses and treatment plans were reviewed and discussed with my supervising physician Dr. Powesr Diagnostic Impression: Primary Impression: Vaginitis ER Course 29-year-old female with no signal past medical history of vaginal discharge and odor. Patient has history of recurrences bacterial vaginosis and yeast infection. Reports that has been sexually active with the same partner. Denies any dysuria at this time. Has regular menses. Resting comfortably stay vital signs. Denies at this time. Ddx considered but are not limited to: UTI, STD exposure, vaginitis Vital signs: are WNL, pt. is afebrile H&PE are most consistent with: Vaginitis most likely secondary to BV yeast ORDERS: [facility] ED INTERVENTIONS: None required at this time. DISCHARGE: At this time pt. is stable for d/c to home. Will provide printed patient care instructions, and any necessary prescriptions. Care plan and follow up instructions have been discussed with the patient prior to discharge. Patient agrees to be treated for BV and yeast infection. Gave a list of STD clinics that can go into further testing. Since denies any urinary symptoms no UA was collected. Last Vital Signs Date Time Temp Pulse Resp B/P (MAP) Pulse Ox O2 Delivery O2 Flow Rate FiO2 09/27/19 18:47 99.3 93 20 100/72 (81) 99 Room Air Disposition: HOME, SELF-CARE Condition: Stable Scripts Fluconazole (FLUCONAZOLE) 100 Mg Tablet 150 MG ORAL ONCE for 1 Day, #2 TAB 0 Refills Prov: Elyssa Avalos 09/27/19 Metronidazole* (FLAGYL*) 500 Mg Tablet 500 MG ORAL BID for 7 Days, #14 TAB Prov: Elyssa Avalos 09/27/19 Patient Instructions: Vaginitis Additional Instructions: Follow-up with your primary doctor, medication as directed, worsening symptoms return to the emergency room Elyssa Avalos Sep 27, 2019 19:02
[2019-09-27] MEDS ORDERED: FLUCONAZOLE100 MG ORAL (19:03)
[2019-09-27] MEDS ORDERED: METRONIDAZOLE500 MG ORAL (19:03)
[2019-09-27 19:13] VITALS: BP 100/72
--- NOTE | 2019-09-27 19:13 | NUR ---
ED Nurse Note: Pt cleared by health care Provider for discharge. DC instructions/prescription was given and explained to pt and verbalized understanding of teachings. All medical deviecs such as ID band removed. Pt is AAO x4, ambulatory and left with all personal belongings.
== END 2019-09-27 19:40 | disposition home or self-care (01) ==
LOC: EMR 19:36
DX: N76.0 Acute vaginitis (principal)
CPT/HCPCS: 99282

== ENCOUNTER 2019-11-18 10:34 | Emergency (ER) | payer OTHER ==
[~2019-11-18] VITALS: Ht 160 cm; Wt 87.1 kg
[2019-11-18 10:44] VITALS: BP 104/71
--- NOTE | 2019-11-18 10:44 | NUR ---
ED Nurse Note: Patient walked in to ED from home c/o vaginal discharge x1 week. Reports white discharges with foul fishy odor. Denies itchiness/ redness.
--- NOTE | 2019-11-18 10:46 | NUR ---
ED Nurse Note: Urine specimen collected and sent to lab.
--- NOTE | 2019-11-18 10:55 | Emergency Room Report ---
History of Present Illness General Chief Complaint: Vaginal Source: Patient Present Illness HPI Disclaimer: Please note that this report is being documented using DRAGON technology. This can lead to erroneous entry secondary to incorrect interpretation by the dictating instrument. HPI: 29-year-old female presents for evaluation of vaginal discharge. Says she has had a white and thick vaginal discharge for 7 to 10 days. Denies pain, dysuria, hematuria, vomiting, diarrhea, fever, chills. LMP was October 27. Has a history of BV and has been treated multiple times for cervicitis and vaginitis. No known exposure to STDs. No other complaints at this time. 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 EOMI. Resp: Normal work of breathing Abdomen: Soft, nontender, nondistended. : Cervical os is closed, no CMT. There is a thick white vaginal discharge, from the cervical office. No vaginal wall lesions noted. Skin: Intact. No abrasions, laceration or rash over the exposed skin MSK: Normal tone and bulk. Moving all extremities. No obvious deformity. Neuro: Awake and alert. Mentating appropriately Medical Decision Making Diagnostic Impression: Primary Impression: Bacterial vaginosis ER Course 29-year-old female presents for evaluation 1 week vaginal discharge. Differential includes is not limited to candidiasis, STD, UTI. Pelvic exam shows a closed office with moderately thick white vaginal discharge. Microbiology shows moderate clue cells but no Trichomonas, no yeast. Urinalysis shows elevated leukocyte esterase but few bacteria and few white cells. Patient will be treated with Flagyl for 1 week. Instructed not to drink alcohol due to disulfiram-like reaction. He was first dose given in the emergency department as well as azithromycin and ceftriaxone for treatment of cervicitis given her high risk behavior with multiple sexual partners. I recommended that she obtain outpatient STD testing for HIV, syphilis, hepatitis and other sexual transmitted disease at outpatient clinic and that she refer her sexual partners to those clinics as well or if they are symptomatic to present to an emergency department. She patient will be discharged to follow- up with PMD. Discussed reasons to return to the emergency department. She understands and agrees with treatment plan. Laboratory Tests Test 11/18/19 10:45 Urine Color Pale yellow Urine Appearance Clear Urine pH 6 (4.5-8.0) Urine Specific [place] 1.010 (1.005-1.035) Urine Protein Negative (NEGATIVE) Urine Glucose (UA) Negative (NEGATIVE) Urine Ketones Negative (NEGATIVE) Urine Blood Negative (NEGATIVE) Urine Nitrite Negative (NEGATIVE) Urine Bilirubin Negative (NEGATIVE) Urine Urobilinogen Normal MG/DL (0.0-1.0) Urine Leukocyte Esterase 3+ (NEGATIVE) H Urine RBC 0 /HPF (0 - 2) Urine WBC 2-4 /HPF (0 - 2) Urine Squamous Epithelial Cells Few /LPF (NONE/OCC) Urine Bacteria Few /HPF (NONE) Urine HCG, Qualitative Negative (NEGATIVE) Microbiology Date/Time Source Procedure Growth Status 11/18/19 10:45 Vaginal Wet Prep - Final Complete Last Vital Signs Date Time Temp Pulse Resp B/P (MAP) Pulse Ox O2 Delivery O2 Flow Rate FiO2 11/18/19 10:39 98.2 87 16 104/71 (82) 100 Room Air Disposition: HOME, SELF-CARE Condition: Stable Scripts Metronidazole* (FLAGYL*) 500 Mg Tablet 500 MG ORAL BID for 7 Days, #14 TAB Prov: Jordan Powers MD 11/18/19 Jordan Powers MD Nov 18, 2019 10:55
--- NOTE | 2019-11-18 10:55 | NUR ---
ED Nurse Note: Wet mount done by ILANA and an RN. Specimen sent to lab.
[2019-11-18 11:05] LABS: APPEARANCE,URINE CLEAR; BILIRUBIN, URINE NEGATIVE (NEGATIVE); COLOR,URINE PALE YELLOW; GLUCOSE, URINE (UA) NEGATIVE (NEGATIVE); KETONES,URINE NEGATIVE (NEGATIVE); LEUKOCYTE ESTERASE ,URINE 3+ (NEGATIVE); NITRITE,URINE NEGATIVE (NEGATIVE); PH,URINE 6 (4.5-8.0); PROTEIN,URINE NEGATIVE (NEGATIVE); UROBILINOGEN,URINE NORMAL MG/DL (0.0-1.0)
[2019-11-18] MEDS ORDERED: metroNIDAZOLE 500mg tab ORAL ONE (11:15)
[2019-11-18] MEDS ORDERED: Lidocaine 1% MPF 10mg/ml 5ml INJ ONE (11:15)
[2019-11-18] MEDS ORDERED: METRONIDAZOLE500 MG ORAL (11:15)
[2019-11-18] MEDS ORDERED: Azithromycin 250mg tab ORAL ONE (11:15)
[2019-11-18 11:27] VITALS: BP 110/69
--- NOTE | 2019-11-18 11:27 | NUR ---
ED Nurse Note: Pt cleared by ERMD for discharge. DC instructions was given and explained to pt and verbalized understanding of teachings. Prescription was sent electronically. All medical deviecs such as ID band removed. Pt is AAO x4, ambulatory and left with all personal belongings.
== END 2019-11-18 11:27 | disposition home or self-care (01) ==
LOC: EMR 11:05
DX: N76.0 Acute vaginitis (principal)
CPT/HCPCS: 81003; 81025; 87210; 96372; 96374; J0696; Q0144; Z7502; 99284

== ENCOUNTER 2019-12-27 14:36 | Emergency (ER) | payer SELFPAY ==
[~2019-12-27] VITALS: Ht 160 cm; Wt 89.4 kg
--- NOTE | 2019-12-27 15:00 | NUR ---
ED Nurse Note: Pt ambulated to ed c/o vaginal burning, itchiness, and redness. pt denies odor. urine specimen sent to lab. pt states her last intercourse was a month ago.
[2019-12-27 15:01] VITALS: BP 102/65
--- NOTE | 2019-12-27 15:09 | NUR ---
ED Nurse Note: Accompanied ER-PAC in wet mount procedure.
--- NOTE | 2019-12-27 15:16 | Emergency Room Report ---
History of Present Illness General Chief Complaint: Vaginal Source: Patient Present Illness HPI 29 YO female presents to the ED c/o Vaginal itching and d/c x 5 days. Denies nausea vomiting fevers, chills, abdominal pain or tenderness. She denies suspicion of STI she reports that she has not had any recent unprotected intercourse. Patient denies recent antibiotic use. She denies or suspicion of . She denies dysuria, hematuria, urinary frequency or urgency. She denies genital rashes/sores/lesions. Patient denies swollen tender lymph nodes or joint pain. 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 COVID-19 Screening: Negative COVID-19 COVID-19 Testing Source: nose Patient History Past Medical History: see triage record Past Surgical History: none Pertinent Family History: none Last Menstrual Period: 12/19/19 Now: No : 2 Para: 2 Reviewed Nursing Documentation: PMH: Agreed; PSxH: Agreed Nursing Documentation-PMH Past Medical History: No History, Except For Hx Asthma: Yes Review of Systems All Other Systems: negative except mentioned in HPI Physical Exam Vital Signs Date Time Temp Pulse Resp B/P (MAP) Pulse Ox O2 Delivery O2 Flow Rate FiO2 12/27/19 14:49 98.4 82 17 102/65 (77) 99 Room Air Sp02 EP Interpretation: reviewed, normal General Appearance: no apparent distress, alert, GCS 15, non-toxic Head: normocephalic, atraumatic Eyes: bilateral eye normal inspection, bilateral eye PERRL ENT: hearing grossly normal, normal voice Neck: full range of motion Respiratory: lungs clear, normal breath sounds, speaking full sentences Cardiovascular #1: regular rate, rhythm Gastrointestinal: normal bowel sounds, non tender, soft, non-distended, no guarding Rectal: deferred Genitourinary: normal inspection, no CVA tenderness, adnexa normal, cervix normal, ext genitalia/vag normal, other - NO CMT. there was white D/c in the vaginal vault Musculoskeletal: normal range of motion, gait/station normal, non-tender Neurologic: alert, motor strength/tone normal, oriented x3, sensory intact, responsive, speech normal Psychiatric: judgement/insight normal Skin: no rash, normal color Lymphatic: no adenopathy Medical Decision Making PA Attestation Dr. Ortiz is my supervising Physician whom patient management has been discussed with. Diagnostic Impression: Primary Impression: Vaginal discharge ER Course Pt. presents to the ED c/o Vaginal itching and d/c x 5 days. Ddx considered but are not limited to UTi , STI, G & C, trichomonas, Vaginitis , cervicitis, bartholins gland cyst or cellulitis. Vital signs: are WNL, pt. is afebrile H&PE are most consistent with vaginitis ORDERS: - Wet Mount-no check no yeast no clue cells. -UA: WNL -Urine Hcg: Negative ED INTERVENTIONS: -Diflucan 150mg PO -I do not identify an emergent condition at this time. With current presentation , pt. is stable for close outpatient follow up and conservative treatment. D/ w pt. to return promptly to ED with worsening or new symptoms.- Pt. verbalizes' understanding and agreement with proposed treatment plan. DISCHARGE: At this time pt. is stable for d/c to home. Will provide printed patient care instructions, and any necessary prescriptions. Care plan and follow up instructions have been discussed with the patient prior to discharge. Labs Test 12/27/19 15:00 Urine Color Pale yellow Urine Appearance Clear Urine pH 6 (4.5-8.0) Urine Specific [place] 1.010 (1.005-1.035) Urine Protein Negative (NEGATIVE) Urine Glucose (UA) Negative (NEGATIVE) Urine Ketones Negative (NEGATIVE) Urine Blood Negative (NEGATIVE) Urine Nitrite Negative (NEGATIVE) Urine Bilirubin Negative (NEGATIVE) Urine Urobilinogen Normal MG/DL (0.0-1.0) Urine Leukocyte Esterase Negative (NEGATIVE) Urine HCG, Qualitative Negative (NEGATIVE) Last Vital Signs Date Time Temp Pulse Resp B/P (MAP) Pulse Ox O2 Delivery O2 Flow Rate FiO2 12/27/19 15:01 98.4 88 17 102/65 99 Room Air Disposition: HOME, SELF-CARE Condition: Stable Scripts Fluconazole (FLUCONAZOLE) 100 Mg Tablet 100 MG ORAL DAILY, #3 TAB 0 Refills Prov: Mago Sauer 12/27/19 Patient Instructions: Vaginal Yeast Infection, Adult Additional Instructions: Take medications as directed. Follow up with a Primary Care Provider in 3-5 days, even if your symptoms have resolved. Return sooner to ED if new symptoms occur, or current symptoms become worse. - Please note that this Emergency Department Report was dictated using DiscGenicsgraining machine operator technology software, occasionally this can lead to erroneous entry secondary to interpretation by the dictation equipment. Mago Sauer Dec 27, 2019 15:16
[2019-12-27 15:41] LABS: APPEARANCE,URINE CLEAR; BILIRUBIN, URINE NEGATIVE (NEGATIVE); COLOR,URINE PALE YELLOW; GLUCOSE, URINE (UA) NEGATIVE (NEGATIVE); KETONES,URINE NEGATIVE (NEGATIVE); LEUKOCYTE ESTERASE ,URINE NEGATIVE (NEGATIVE); NITRITE,URINE NEGATIVE (NEGATIVE); PH,URINE 6 (4.5-8.0); PROTEIN,URINE NEGATIVE (NEGATIVE); UROBILINOGEN,URINE NORMAL MG/DL (0.0-1.0)
[2019-12-27] MEDS ORDERED: FLUCONAZOLE100 MG ORAL (16:25)
[2019-12-27] MEDS ORDERED: Fluconazole 150mg tab ORAL ONE (16:30)
[2019-12-27 16:35] VITALS: BP 108/62
--- NOTE | 2019-12-27 16:36 | NUR ---
ER DISCHARGE NOTE: Patient is cleared to be discharged per ERMD, pt is aox4, on room air, with stable vital signs. pt was given dc and prescription instructions, pt was able to verbalize understanding, pt id bandremoved. pt is able to ambulate with steady gait. pt took all belongings.
== END 2019-12-27 16:35 | disposition home or self-care (01) ==
LOC: EMR 16:22
DX: N89.8 Other specified noninflammatory disorders of vagina (principal)
CPT/HCPCS: 81003; 81025; 87210; 99283

== ENCOUNTER 2020-01-05 23:46 | Emergency (ER) | payer SELFPAY ==
[~2020-01-05] VITALS: Ht 160 cm; Wt 86.2 kg
[2020-01-06 00:06] VITALS: BP 111/74
[2020-01-06] MEDS ORDERED: Azithromycin 250mg tab ORAL ONE (00:30)
[2020-01-06] MEDS ORDERED: Lidocaine 1% MPF 10mg/ml 5ml INJ ONE (00:30)
[2020-01-06 00:36] LABS: APPEARANCE,URINE CLEAR; BILIRUBIN, URINE NEGATIVE (NEGATIVE); COLOR,URINE PALE YELLOW; GLUCOSE, URINE (UA) NEGATIVE (NEGATIVE); KETONES,URINE NEGATIVE (NEGATIVE); LEUKOCYTE ESTERASE ,URINE 1+ (NEGATIVE); NITRITE,URINE NEGATIVE (NEGATIVE); PH,URINE 6 (4.5-8.0); PROTEIN,URINE NEGATIVE (NEGATIVE); UROBILINOGEN,URINE NORMAL MG/DL (0.0-1.0)
[2020-01-06 01:12] VITALS: BP 115/76
--- NOTE | 2020-01-06 01:27 | Emergency Room Report ---
History of Present Illness General Chief Complaint: Female Urogenital Problems Source: Patient Present Illness HPI 29-year-old female presents for evaluation. States she has been noticing vaginal discharge for the last few weeks. Foul-smelling. Denies fevers or chills. Notes some dysuria. States she has had unprotected sex. States she has been here previously for similar presentation. States she was prescribed antibiotics which she states are not helping. No other aggravating relieving factors. Denies any other associated symptoms Allergies: Coded Allergies: No Known Allergies (Unverified , 09/14/18) COVID-19 Screening Contact w/high risk pt: No Recent Travel to affected area: No Experienced COVID-19 symptoms?: No COVID-19 Testing performed ANTENNA SPECIALIST: No Patient History Past Medical History: asthma Past Surgical History: none Pertinent Family History: none Social History: Denies: smoking, alcohol use, drug use Last Menstrual Period: 12/2019 Now: No Immunizations: UTD Reviewed Nursing Documentation: PMH: Agreed; PSxH: Agreed Nursing Documentation-PMH Hx Asthma: Yes Review of Systems All Other Systems: negative except mentioned in HPI Physical Exam Vital Signs Date Time Temp Pulse Resp B/P (MAP) Pulse Ox O2 Delivery O2 Flow Rate FiO2 01/05/20 23:56 99.0 92 16 111/74 (86) 98 Room Air Sp02 EP Interpretation: reviewed, normal General Appearance: no apparent distress, alert, GCS 15, non-toxic Head: normocephalic, atraumatic Eyes: bilateral eye normal inspection, bilateral eye PERRL ENT: hearing grossly normal, normal pharynx, no angioedema, normal voice Neck: full range of motion, supple/symm/no masses Respiratory: chest non-tender, lungs clear, normal breath sounds, speaking full sentences Cardiovascular #1: regular rate, rhythm, no edema Cardiovascular #2: 2+ carotid (R), 2+ carotid (L), 2+ radial (R), 2+ radial (L) , 2+ dorsalis pedis (R), 2+ dorsalis pedis (L) Gastrointestinal: normal bowel sounds, non tender, soft, non-distended, no guarding, no rebound Rectal: deferred Genitourinary: normal inspection, no CVA tenderness Musculoskeletal: back normal, normal range of motion, gait/station normal, non- tender Neurologic: alert, motor strength/tone normal, oriented x3, sensory intact, responsive, speech normal Psychiatric: judgement/insight normal, memory normal, mood/affect normal, no suicidal/homicidal ideation Reflexes: 3+ bicep (R), 3+ bicep (L), 3+ tricep (R), 3+ tricep (L), 3+ knee (R) , 3+ knee (L) Lymphatic: no adenopathy Medical Decision Making Diagnostic Impression: Primary Impression: Vaginitis Qualified Codes: N76.1 - Subacute and chronic vaginitis ER Course Hospital Course 29-year-old female presents to ED complaining of dysuria with discharge Differential diagnoses include: UTI, cystitis, pyelonephritis Clinical course Patient placed on stretcher. After initial history and physical I ordered UA, urine . UA noted to be unremarkable. Reviewed EMR. Patient has been seen here multiple times for similar presentations. Recently had performed which bacteria but no evidence of clue cells or trichomonas or yeast Patient states she is also concern for unprotected sex. Treated with Rocephin/ azithromycin. Patient has been seen here multiple times previously for presumed vaginitis and prescribed metronidazole and Diflucan. I believe patient would benefit from OB/ ATTACHER evaluation. States that she does not have one. I will provide referrals. Diagnosis - vaginitis Stable and discharged home. Instructed to followup with PMD. Return to ED if symptoms recur or worsen Laboratory Tests Test 01/06/20 00:06 Urine Color Pale yellow Urine Appearance Clear Urine pH 6 (4.5-8.0) Urine Specific [place] 1.010 (1.005-1.035) Urine Protein Negative (NEGATIVE) Urine Glucose (UA) Negative (NEGATIVE) Urine Ketones Negative (NEGATIVE) Urine Blood Negative (NEGATIVE) Urine Nitrite Negative (NEGATIVE) Urine Bilirubin Negative (NEGATIVE) Urine Urobilinogen Normal MG/DL (0.0-1.0) Urine Leukocyte Esterase 1+ (NEGATIVE) H Urine RBC 0-2 /HPF (0 - 2) Urine WBC 0-2 /HPF (0 - 2) Urine Squamous Epithelial Cells Few /LPF (NONE/OCC) Urine Bacteria None /HPF (NONE) Urine HCG, Qualitative Negative (NEGATIVE) Last Vital Signs Date Time Temp Pulse Resp B/P (MAP) Pulse Ox O2 Delivery O2 Flow Rate FiO2 01/06/20 01:12 98.9 90 16 115/76 98 Room Air Status: improved Disposition: HOME, SELF-CARE Condition: Stable [facility]errals: [facility] [place] Patient Instructions: Sha Mcgovern MD Jan 06, 2020 01:27
== END 2020-01-06 01:12 | disposition home or self-care (01) ==
LOC: EMR 01-06 00:12
DX: N76.1 Subacute and chronic vaginitis (principal)
CPT/HCPCS: 81003; 81025; 96372; 96374; 99284; J0696

== ENCOUNTER 2020-03-11 21:42 | Emergency (ER) | payer OTHER ==
[~2020-03-11] VITALS: Ht 160 cm; Wt 88.9 kg
--- NOTE | 2020-03-11 21:57 | NUR ---
ED Nurse Note: pt presents to ED with R shoulder pain, states that she was pulling a pt up in bed today and felt sharp pains in her R shoulder after that. she still has full ROM of the extremity but reports pain is still there. 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
[2020-03-11 22:01] VITALS: BP 110/72
[2020-03-11] MEDS ORDERED: TYLENOL EXTRA500 MG ORAL (22:05)
[2020-03-11] MEDS ORDERED: LIDODERM700 M1 TOPIC (22:05)
[2020-03-11] MEDS ORDERED: ROBAXIN-750750 MG PO (22:05)
--- NOTE | 2020-03-11 22:06 | Emergency Room Report ---
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 Denies head trauma, SORIANO, neck pain, LOC, numbness, tingling, paresthesia. The patient's symptoms were gradual onset, severity was moderate, duration since prior to arrival. Quality: aching Past medical history: Denies Past surgical history: Denies Smoking: Denies Alcohol use: Denies Drug use: Denies Review of systems: CONST: No fevers or chills, No night sweats PULMONARY: No productive cough, No shortness of breath CARDIAC: No chest pain, No palpitations GI: No vomiting, No diarrhea , No melena_or_BRBPR : No dysuria, No hematuria, No discharge NEURO: No new_focal_weakness_or_numbness, No confusion, No vision changes 14 point Review of Systems is otherwise negative except per HPI Physical Exam: GENERAL: Awake_alert_ nontoxic, no acute distress Spo2 99% on RA -normal EYES: Extraocular muscles are intact. Conjunctivae clear. Lids without swelling ENT: External nose and ear normal_in_appearance. Oropharynx clear. Head_atraumatic, Moist_oral_mucosa NECK: No JVD. No meningismus. No thyromegaly. Supple. Trachea midline No midline C/T/L spine step off or deformity RESP: Normal respiratory effort. Symmetric rise. No stridor. Clear_to_auscultation_No_rales_No_wheezes CARDIAC: [Regular rate] and regular rhytm. No_significant pedal edema. ABDOMEN: Soft. Nondistended. Nontender_No_rebound_or_guarding. MSK: R bicep hypertonicity no deformity Normal muscle tone, without rigidity. Extremities without asymmetric deformity or swelling. SKIN: Warm and dry. No visible cyanosis or pallor NEUROLOGIC: Alert, oriented x3. Motor_and_sensation_grossly_intact. No truncal ataxia. Gait_normal Psych: Normal mood and affect, normal judgment and insight - COORDINATION OF CARE Case was discussed with: Patient Medical Decision Making/Plan: Differential diagnosis includes musculoskeletal strain/pain DOUBT fracture, dislocation, compartment syndrome, arterial occlusion, nerve damage, among others. Patient is NVI and HD stable. No warmth or erythema at the R shoulder joint to suggest septic arthritis. Distally the patient has capillary refill <2 seconds and strong pulses. There is no pallor or pain out of proportion to exam. There is no significant swelling, deformity, or report of significant dislocation that subsequently reduced. No evidence of arterial occlusion or injury. The associated joints have full range of motion without any significant pain or restriction in mobility. No evidence at this time of major ligamentous disruption. Workman comp filed. Suspect bicep strain ED intervention included robaxin and tylenol with relief of symptoms Will DC with robaxin, tylenol and lidocaine Pertinent results reviewed with the patient. I educated the patient on the current treatment plan including the risks, benefits, and alternatives. I also discussed the extent and limitations of the current evaluation. The patient expressed understanding and agreement with plan. I recommended PMD follow-up within 1-2 days. Also advised that the patient return to the Emergency Department as soon as possible if they experience any new, persistent, or worsening symptoms. Allergies: Coded Allergies: No Known Allergies (Unverified , 09/14/18) COVID-19 Screening Contact w/high risk pt: No Recent Travel to affected area: No Experienced COVID-19 symptoms?: No COVID-19 Testing performed MOTION PICTURE DIRECTOR: No Patient History Last Menstrual Period: 03/06 Now: No : 2 Para: 2 Nursing Documentation-[facility] Past Medical History: No Stated History Hx Asthma: Yes Physical Exam Vital Signs Date Time Temp Pulse Resp B/P (MAP) Pulse Ox O2 Delivery O2 Flow Rate FiO2 03/11/20 21:43 98.1 85 18 110/72 (85) 99 Room Air Medical Decision Making Diagnostic Impression: Primary Impression: Biceps muscle strain Additional Impression: Shoulder pain, right Last Vital Signs Date Time Temp Pulse Resp B/P (MAP) Pulse Ox O2 Delivery O2 Flow Rate FiO2 03/11/20 22:01 98.1 78 18 110/72 99 Room Air Status: improved Disposition: HOME, SELF-CARE Admit Decision Time: 22:04 Condition: Stable Scripts Lidocaine Patch* (Lidoderm Patch*) 1 Each Adh..patch 1 PATCH TOPIC DAILY, #7 PATCH 0 Refills Patch(es) may remain in place for up to 12 hours in any 24-hour period. Prov: Mervat Hurst D.O. 9/23/20 Acetaminophen* (TYLENOL EXTRA STRENGTH*) 500 Mg Tablet 500 MG ORAL Q8H PRN for Prn Headache/Temp > 101, #30 TAB 0 Refills Prov: Mervat Hurst D.O. 03/11/20 Methocarbamol* (ROBAXIN-750*) 750 Mg Tablet 750 MG PO QID, #28 TAB 0 Refills Prov: Mervat Hurst D.O. 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 will taking Robaxin as it is potentially sedating. Follow-up with your doctor sooner if your condition requires a more timely clinical reevaluation. Return to the emergency department immediately if you feel that your condition is worsening or if you have any new or concerning symptoms. Review your discharge instructions and take any prescriptions given as instructed. [facility] PROVIDES FREE OR LOW-COST HEALTH SERVICES TO PEOPLE WHO CAN SHOW PROOF THAT THEY LIVE IN [facility]. TO FIND MORE CLINICS PARTNERED WITH THE [facility] TO PROVIDE SERVICE, PLEASE CALL . Mervat Hurst D.O. Mar 11, 2020 22:05
[2020-03-11 22:10] VITALS: BP 110/72
[2020-03-11] MEDS ORDERED: Methocarbamol 750mg tab ORAL ONE (22:15)
[2020-03-11] MEDS ORDERED: Acetaminophen 500mg (ES) tab ORAL ONE (22:15)
== END 2020-03-11 22:10 | disposition home or self-care (01) ==
LOC: EMR 22:05
DX: M25.511 Pain in right shoulder (principal); S46.219A Strain of muscle, fascia and tendon of other parts of biceps, unspecified arm, initial encounter; X50.9XXA Other and unspecified overexertion or strenuous movements or postures, initial encounter; Y92.9 Unspecified place or not applicable
CPT/HCPCS: 99282

== ENCOUNTER 2020-08-14 08:36 | Emergency (ER) | payer OTHER ==
[~2020-08-14] VITALS: Ht 162.6 cm; Wt 86.2 kg
[~2020-08-14 08:36] MED LIST changes: +LIDODERM700 M1 TOPIC; +ROBAXIN-750750 MG PO; +TYLENOL EXTRA500 MG ORAL
--- NOTE | 2020-08-14 08:50 | NUR ---
came to er complaints of vaginal discharge x 3 days no bleeding or itching waiting for md ny
[2020-08-14 08:52] VITALS: BP 110/73
[2020-08-14] MEDS ORDERED: metroNIDAZOLE 500mg tab ORAL ONE (09:00)
[2020-08-14] MEDS ORDERED: Lidocaine 1% MPF 10mg/ml 5ml INJ ONE (09:00)
[2020-08-14] MEDS ORDERED: Azithromycin 250mg tab ORAL ONE (09:00)
[2020-08-14] MEDS ORDERED: cefTRIAXone 500mg Inj IM ONE (09:00)
--- NOTE | 2020-08-14 09:06 | Emergency Room Report ---
History of Present Illness General Chief Complaint: Female Urogenital Problems Source: Patient Present Illness HPI 30-year-old female with past medical history of previous STI presenting to the emergency department with white vaginal discharge x3 days. She is sexually active with one male partner who was recently treated for sexually transmitted infection. She denies any other complaints at this time including fever, abd pain, pelvic pain, back pain, CP, SOB, nausea, vomiting, diarrhea, dysuria, hematuria, melena, hematochezia, back pain, skin lesions, vaginal bleeding or any other symptoms. LMP was July 18, 2020. Last Pap smear was 3 months ago and was found to be normal. The patient's symptoms were gradual onset, severity was moderate, duration since 3 days. Quality: White discharge Past medical history: Sexually transmitted infection Past surgical history: Denies Smoking: Denies Alcohol use: Denies Drug use: Denies Review of systems: CONST: No fevers or chills, No night sweats PULMONARY: No productive cough, No shortness of breath CARDIAC: No chest pain, No palpitations GI: No vomiting, No diarrhea , No melena_or_BRBPR : No dysuria, No hematuria, ++ discharge NEURO: No new_focal_weakness_or_numbness, No confusion, No vision changes 14 point Review of Systems is otherwise negative except per HPI Physical Exam: GENERAL: Awake_alert_ nontoxic, no acute distress Spo2 98% on RA -normal EYES: Extraocular muscles are intact. Conjunctivae clear. Lids without swelling ENT: External nose and ear normal_in_appearance. Oropharynx clear. Head_atraumatic, Moist_oral_mucosa NECK: No JVD. No meningismus. No thyromegaly. Supple. Trachea midline RESP: Normal respiratory effort. Symmetric rise. No stridor. Clear_to_auscultation_No_rales_No_wheezes CARDIAC: Regular rate and regular rhytm. No_significant pedal edema. ABDOMEN: Soft. Nondistended. Nontender_No_rebound_or_guarding. Negative Aguiar sign. No CVA tenderness to palpation. Negative Rovsing's. No palpable abdominal mass. : mild white vaginal DC. No candidiasis, vaginal laceration, or bleeding. Normal ext genitalia, no CMT or pelvic pain w palpation , Chaperoned by female medical staff services coordinator Anuradha MSK: Normal muscle tone, without rigidity. Extremities without asymmetric deformity or swelling. SKIN: Warm and dry. No visible cyanosis or pallor NEUROLOGIC: Alert, oriented x3. Motor_and_sensation_grossly_intact. No truncal ataxia. Gait_normal Psych: Normal mood and affect, normal judgment and insight - COORDINATION OF CARE Case was discussed with: Patient Any labs that were ordered were interpreted as part of the medical decision making: Medical Decision Making/Plan Differential diagnosis includes yeast infection, bacterial vaginosis, trichomonas infection, chlamydia infection, gonorrhea infection, among others. Patient is afebrile and well-appearing. There is no abdominal tenderness or pelvic pain/CMT on examination. No CVA tenderness to palpation. UA positive for_UTI. Upreg incidentally positive. Pelvic exam without any evidence of PID. Patient appears stable for discharge home and follow up with PMD for referral to [facility] for care. Will Dc with keflex. Pt advised if bacteria is resistant she will receive a call back with change in abx. Because patient does have risk factors for chlamydia / gonorrhea, was empirically treated with Flagyl, Ceftriaxone and Azithromycin. No evidence of candidiasis. Patient advised not to drink alcohol for at least 1 week. Advised safe sex practices and to abstain from sex with infected partners. Pt instructed to f/u with PMD as outpatient for remainder of STD testing, including syphilis and HIV. Allergies: Coded Allergies: No Known Allergies (Unverified , 09/14/18) COVID-19 Screening Contact w/high risk pt: No Recent Travel to affected area: No Experienced COVID-19 symptoms?: No COVID-19 Testing performed FRAUD EXAMINER: No Patient History Now: No Nursing Documentation-[facility] Past Medical History: No Stated History Hx Asthma: Yes Physical Exam Vital Signs Date Time Temp Pulse Resp B/P (MAP) Pulse Ox O2 Delivery O2 Flow Rate FiO2 08/14/20 08:47 98.2 86 16 110/73 (85) 98 Room Air Sp02 EP Interpretation: reviewed, normal Medical Decision Making Diagnostic Impression: Primary Impression: Screening for STD (sexually transmitted disease) Additional Impressions: Vaginitis Vaginal discharge Reevaluation Time: 09:52 Last Vital Signs Date Time Temp Pulse Resp B/P (MAP) Pulse Ox O2 Delivery O2 Flow Rate FiO2 08/14/20 08:52 98.2 16 110/73 98 Room Air 08/14/20 08:47 86 Status: improved Disposition: HOME, SELF-CARE Admit Decision Time: 09:52 Condition: Stable Scripts Cephalexin* (KEFLEX*) 500 Mg Capsule 500 MG ORAL EVERY 12 HOURS, #14 CAP 0 Refills Prov: Mervat Hurst D.O. 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 Do not drink alcohol for 1 week after taking these antibiotics. Refrain from having sex with infected partners Follow-up with your doctor sooner if your condition requires a more timely clinical reevaluation. Return to the emergency department immediately if you feel that your condition is worsening or if you have any new or concerning symptoms. Review your discharge instructions and take any prescriptions given as instructed. [facility] PROVIDES FREE OR LOW-COST HEALTH SERVICES TO PEOPLE WHO CAN SHOW PROOF THAT THEY LIVE IN [facility]. TO FIND MORE CLINICS PARTNERED WITH [facility] TO PROVIDE SERVICE, PLEASE CALL . Mervat Hurst D.O. Aug 14, 2020 09:06
[2020-08-14 09:12] LABS: APPEARANCE,URINE CLOUDY; BILIRUBIN, URINE NEGATIVE (NEGATIVE); COLOR,URINE PALE YELLOW; GLUCOSE, URINE (UA) NEGATIVE (NEGATIVE); KETONES,URINE NEGATIVE (NEGATIVE); LEUKOCYTE ESTERASE ,URINE 3+ (NEGATIVE); NITRITE,URINE NEGATIVE (NEGATIVE); PH,URINE 6 (4.5-8.0); PROTEIN,URINE 1+ (NEGATIVE); UROBILINOGEN,URINE NORMAL MG/DL (0.0-1.0)
[2020-08-14] MEDS ORDERED: CEPHALEXIN500 MG ORAL (09:29)
== END 2020-08-14 09:50 | disposition home or self-care (01) ==
LOC: EMR 09:24
DX: Z11.3 Encounter for screening for infections with a predominantly sexual mode of transmission (principal); O23.599 Infection of other part of genital tract in pregnancy, unspecified trimester; J45.909 Unspecified asthma, uncomplicated
CPT/HCPCS: 81003; 81025; 87086; 96372; 99283; J0696